=== PATIENT | male | born 1965 | race Caucasian/White ===

== ENCOUNTER 2018-04-19 09:42 | Emergency (ER) | payer BC, MEDICAID ==
[~2018-04-19] VITALS: Ht 188 cm; Wt 81.2 kg
[2018-04-19] MEDS ORDERED: SODIUM CHLORIDE FLUSH 10ML SYR IVF ONE (10:00)
[2018-04-19] MEDS ORDERED: GLUCAGON 1 MG IVPush ONE (10:00)
[2018-04-19 10:35] LABS: BASOPHILS % (AUTO) 1 % (0-1); EOSINOPHILS # (AUTO) 0.05 x10^3/uL (0-0.4); EOSINOPHILS % (AUTO) 1 % (1-7); LYMPHOCYTES # (AUTO) 2.49 x10^3/uL (1-3.4); LYMPHOCYTES % (AUTO) 25 % (22-44); MD NO; MEAN CORPUSCULAR HEMOGLOBIN 31.1 pg (27.5-34.5); MEAN CORPUSCULAR HGB CONC 33.9 g/dL (33.2-36.2); MEAN CORPUSCULAR VOLUME 91.6 fL (81-97); MEAN PLATELET VOLUME 8.1 fL (7.4-10.4); MONOCYTES % (AUTO) 8 % (2-9); NEUTROPHILS % (AUTO) 66 % (42-75); PLATELET COUNT 327 x10^3/uL (130-400); RED BLOOD COUNT 5.64 x10^6/uL (4.38-5.82); RED CELL DISTRIBUTION WIDTH 13.4 % (9.4-14.8)
[2018-04-19] MEDS ORDERED: GLUCAGON 1 MG ONE (10:35)
[2018-04-19] MEDS ORDERED: ONDANSETRON ODT 4 MG ONE (10:36)
[2018-04-19] MEDS ORDERED: HYDROmorphone 2 MG/ML, 1ML ONE (10:36)
[2018-04-19 10:47] LABS: ALANINE AMINOTRANSFERASE 33 U/L (12-78); ALBUMIN 4.7 g/dL (3.4-5.0); ANION GAP 10 mmol/L (5-15); CALCIUM 9.7 mg/dL (8.5-10.1); CHLORIDE 109 mmol/L (98-107); CREATININE 1.08 mg/dL (0.7-1.3)
[2018-04-19 10:49] LABS: ALKALINE PHOSPHATASE 63 U/L (45-117); BILIRUBIN,TOTAL 0.9 mg/dL (0.2-1.0); TOTAL PROTEIN 8.9 g/dL (6.4-8.2)
[2018-04-19] MEDS ORDERED: ONDANSETRON ODT 4 MG PO ONE (11:00)
[2018-04-19] MEDS ORDERED: HYDROmorphone 2 MG/ML, 1ML IVPush PRN (11:00)
[2018-04-19 11:18] VITALS: BP 137/90
[2018-04-19] MEDS ORDERED: PROPOFOL 10 MG/ML, 20ML ONE (11:50)
[2018-04-19] MEDS ORDERED: PROPOFOL 10 MG/ML, 20ML IVPush ONE (12:00)
== END 2018-04-19 13:30 | disposition home or self-care (01) ==
LOC: ED 13:15
DX: T18.128A Food in esophagus causing other injury, initial encounter (principal); I10 Essential (primary) hypertension; X58.XXXA Exposure to other specified factors, initial encounter; Y93.89 Activity, other specified; Y92.89 Other specified places as the place of occurrence of the external cause; Y99.8 Other external cause status
CPT/HCPCS: 36415; 43247; 80053; 85025; 99285; J1170; J1610; J2704; Q0162

== ENCOUNTER 2018-11-30 10:51 | Emergency (ER) | payer BC ==
[~2018-11-30] VITALS: Ht 188 cm; Wt 81.7 kg
--- NOTE | 2018-11-30 11:18 | NUR ---
SECURITY TESTER: PT AMBULATORY TO ROOM FROM LOBBY
[2018-11-30] MEDS ORDERED: GLUCAGON 1 MG ONE (11:38)
--- NOTE | 2018-11-30 11:41 | NUR ---
AWAITING GI FOR CONSULT/SCOPE.
[2018-11-30] MEDS ORDERED: GLUCAGON 1 MG IVPush ONE (12:00)
--- NOTE | 2018-11-30 12:24 | NUR ---
pt resting comfortablt on an e.r. gurney. emesis bag provided for drool collection. vs are stable, and wdl. i will continue to monitor and treat as ordered, as well as prn while awaiting gi to arrive for egd.
[2018-11-30] MEDS ORDERED: ONDANSETRON 2MG/ML, 2ML IVPush ONE (13:30)
[2018-11-30] MEDS ORDERED: MORPHINE SULFATE 4 MG/ML, 1ML IVPush PRN (13:30)
[2018-11-30] MEDS ORDERED: ONDANSETRON 2MG/ML, 2ML ONE (13:45)
[2018-11-30] MEDS ORDERED: MORPHINE SULFATE 4 MG/ML, 1ML ONE (13:46)
[2018-11-30] MEDS ORDERED: PROPOFOL 10 MG/ML, 20ML ONE (15:03)
[2018-11-30] MEDS ORDERED: FENTANYL PF 100 MCG/2ML ONE (15:15)
--- NOTE | 2018-11-30 15:55 | NUR ---
TASK RN: RECIEVED REPROT FROM EGD RN AND PASSED ON TO SATHISH RN. PT IS A/OX4 WITH NADN. MAINTAINS AIRWAY WITHOUT DISTRESS. PT SPEAKIGN IN FULL SENTANCES. SATHISH RN TO ASSUME CARE.
[2018-11-30 16:56] VITALS: BP 107/82
== END 2018-11-30 16:58 | disposition home or self-care (01) ==
LOC: ED 12:54
DX: T18.128A Food in esophagus causing other injury, initial encounter (principal); I10 Essential (primary) hypertension; X58.XXXA Exposure to other specified factors, initial encounter; Y93.89 Activity, other specified; Y92.89 Other specified places as the place of occurrence of the external cause; Y99.8 Other external cause status
CPT/HCPCS: 43247; 96374; 96375; 99285; J1610; J2405

== ENCOUNTER 2019-01-05 12:16 | Emergency (ER) | payer BC ==
[~2019-01-05] VITALS: Ht 188 cm; Wt 80.5 kg
--- NOTE | 2019-01-05 12:40 | NUR ---
SWALLOWED FOOD YESTERDAY IT DID NOT PASS TO THE STOMACH UNABLE TO EAT HX SAME AO4 RESP NORMAL LUNGS CLEAR
[2019-01-05] MEDS ORDERED: GLUCAGON 1 MG IVPush STA (12:47)
[2019-01-05] MEDS ORDERED: SODIUM CHLORIDE FLUSH 10ML SYR IVF ONE (13:00)
[2019-01-05] MEDS ORDERED: GLUCAGON 1 MG ONE (13:02)
--- NOTE | 2019-01-05 13:29 | NUR ---
PT. REMAINS A & O X 4 WITH THE CP MONITOR IN PLACE. PT. IS RESTING WITH THE HOB ELEVATED GREATER THAN 30 DEGREES. PT.'S RESP ARE EUPNEIC. VSS.
--- NOTE | 2019-01-05 14:28 | NUR ---
PT IS READY FOR EGD WAITING FOR GI MD NOW VSS STABLE FAMILY AT BED SIDE NO C/O EXCEPT NOT FEELING WELL IN STOMACH
[2019-01-05] MEDS ORDERED: ATROPINE SYRINGE 0.1 MG/ML, 10ML ONE (14:37)
--- NOTE | 2019-01-05 16:01 | NUR ---
PT. IS RESTING WITHOUT CONCERNS. PT. IS AWAITING HIS PROCEDURE.
--- NOTE | 2019-01-05 16:30 | NUR ---
ENDO TEAM IS HERE TO SCOPE THE PT.
[2019-01-05] MEDS ORDERED: PROPOFOL 10 MG/ML, 20ML ONE (16:32)
--- NOTE | 2019-01-05 18:12 | NUR ---
PT. IS TOLERATING PO FLUIDS. PT. HAS RECOVERED FROM PROCEDURAL SEDATION. PT. REMAINS PINK, WARM AND DRY. PT.'S IV WAS DCD', CATH TIP INTACT. PRESSURE HELD WITH HEMOSTASIS ACHIEVED. PT. WAS GIVEN DISCHARGE INSTRUCTIONS AND A SCRIPT WITH UNDERSTANDING VERBALIZED ALONG WITH WILLINGNESS TO COMPLY. PT. WAS AMBULATORY TO THE DISCHARGE DESK WITH A STEADY GAIT. VSS.
[2019-01-05 18:14] VITALS: BP 138/72
--- NOTE | 2019-01-05 18:16 | NUR ---
LATE ENTRY: PT. WAS GIVEN PROPOFOL BY DR. FERNANDEZ DURING HIS PROCEDURAL SEDATION PROCEDURE, PT. WAS SCOPED.
== END 2019-01-05 18:18 | disposition home or self-care (01) ==
LOC: ED 14:24
DX: T18.128A Food in esophagus causing other injury, initial encounter (principal); I10 Essential (primary) hypertension; Y93.89 Activity, other specified; Y92.89 Other specified places as the place of occurrence of the external cause; Y99.8 Other external cause status
CPT/HCPCS: 43247; 96374; 99152; 99285; J1610

== ENCOUNTER 2019-12-06 11:39 | Inpatient (IN) | payer BC, OTHER ==
[~2019-12-06] VITALS: Ht 188 cm; Wt 83.2 kg
[~2019-12-06 11:39] MED LIST: OMEP20TA62 PO
[2019-12-06] MEDS ORDERED: ONDANSETRON ODT 4 MG PO ONE (12:00)
[2019-12-06] MEDS ORDERED: ONDANSETRON ODT 4 MG ONE (12:01)
[2019-12-06] MEDS ORDERED: PROMETHAZINE 25 MG/ML, 1ML ONE (12:26)
[2019-12-06] MEDS ORDERED: FAMOTIDINE 20 MG/2 ML ONE (12:27)
[2019-12-06] MEDS ORDERED: SODIUM CHLORIDE FLUSH 10ML SYR IVF ONE (12:30)
[2019-12-06] MEDS ORDERED: SODIUM CHLORIDE 0.9% 1,000ML IVBOLUS ONE ×2 (12:30→15:00)
[2019-12-06] MEDS ORDERED: FAMOTIDINE 20 MG/2 ML IV ONE (12:30)
[2019-12-06] MEDS ORDERED: PROMETHAZINE 25 MG/ML, 1ML IM ONE (12:30)
[2019-12-06 12:32] LABS: MEAN CORPUSCULAR HEMOGLOBIN 32.1 pg (27.5-34.5); MEAN CORPUSCULAR HGB CONC 34.1 g/dL (33.2-36.2); MEAN CORPUSCULAR VOLUME 94.1 fL (81-97); MEAN PLATELET VOLUME 7.9 fL (7.4-10.4); PLATELET COUNT 311 x10^3/uL (130-400); RED BLOOD COUNT 5.49 x10^6/uL (4.38-5.82); RED CELL DISTRIBUTION WIDTH 13.7 % (9.4-14.8)
[2019-12-06 12:40] LABS: PROTHROMBIN TIME 10.6 Seconds (9.6-11.5)
[2019-12-06 12:41] LABS: ALANINE AMINOTRANSFERASE 42 U/L (12-78); ALBUMIN 4.5 g/dL (3.4-5.0); ANION GAP 10 mmol/L (5-15); CALCIUM 9.7 mg/dL (8.5-10.1); CHLORIDE 88 mmol/L (98-107); CREATININE 1.43 mg/dL (0.7-1.3)
[2019-12-06 12:44] LABS: ALKALINE PHOSPHATASE 64 U/L (45-117); BILIRUBIN,TOTAL 2.2 mg/dL (0.2-1.0); TOTAL PROTEIN 8.8 g/dL (6.4-8.2)
--- NOTE | 2019-12-06 12:47 | NUR ---
PT HAS VOMITED NUMEROUS TIMES, RED/BROWN IN COLOR. ERP SONIA NOTIFIED. PHENERGAN ORDERED AND ADMINISTERED. PT ON ALL MONITORS, PT A&O, RESPS EVEN AND UNLABORED, SINUS TACH RATE 110'S ON CARDIAC MONTIOR WITH NO ECTOPY. PIV ATTEMPTED X 2 BY THIS RN. LETTERPRESS SETTER AT BEDSIDE FOR ATTEMPT.
[2019-12-06 12:56] LABS: MD YES
--- NOTE | 2019-12-06 12:56 | NUR ---
Flokimo Juarez assisted with IV insert and medicated pt per MAR. See MAR for intervention details. Primary RN aware. Pt P/W/D, RESP Intact, call light within reach. Pt to xray.
[2019-12-06 12:58] LABS: BAND#(MANUAL) 2.75 x10^3/uL; BANDS%(MANUAL) 12 % (0-7); LYMPH#(MANUAL) 0.46 x10^3/uL (1-3.4); LYMPHS% (MANUAL) 2 % (22-44); MONOS#(MANUAL) 1.37 x10^3/uL (0.3-2.7); MONOS% (MANUAL) 6 % (2-9); SEG#(MANUAL) 18.32 x10^3/uL (1.8-6.8); SEGS% (MANUAL) 80 % (42-75)
--- NOTE | 2019-12-06 13:00 | NUR ---
pt to radiology for imaging
[2019-12-06 13:04] LABS: <PLATELET ESTIMATE> ADEQUATE; <RBC MORPHOLOGY> NORMAL
[2019-12-06 13:05] LABS: <PLT MORPHOLOGY> NORMAL PLT MORPH
--- NOTE | 2019-12-06 13:16 | NUR ---
pt back from radiology
[2019-12-06] MEDS ORDERED: ONDANSETRON 2MG/ML, 2ML ONE (13:27)
[2019-12-06] MEDS ORDERED: ONDANSETRON 2MG/ML, 2ML IVPush ONE (13:30)
--- NOTE | 2019-12-06 14:01 | NUR ---
second dose zofran ordered and admin as pt is still vomiting q15 min upon return from CT. pt is now more comfortable and has stopped vomiting. pt is a&o, resps even and unlabored. sinus tach on quality assurance monitor final with no ectopy. all labs/imaging reviewed by WANDA Bay, CT scan ordered.
[2019-12-06] MEDS ORDERED: OMNIPAQUE 350 MG/ML, 100ML BOTTLE ONE (14:33)
[2019-12-06] MEDS ORDERED: MORPHINE SULFATE 4 MG/ML, 1ML ONE (14:50)
--- NOTE | 2019-12-06 14:54 | NUR ---
MD SCOTT NOTIFIED PT MEETING CRITERIA FOR SEPSIS, C/O ABD PAIN RADIATING UP TO CHEST AND THROAT. MORPHINE ORDERED. MD INFORMED PT IS STILL TACHYCARDIC AT RATE 110'S, SECOND LITER NS ORDERED. VOMITING HAS SUBSIDED. REPORT GIVEN TO GRANT PARDO WHO IS ASSUMING CARE.
[2019-12-06] MEDS ORDERED: MORPHINE SULFATE 4 MG/ML, 1ML IVPush PRN (15:00)
--- NOTE | 2019-12-06 15:09 | NUR ---
REPORT RECEIVED FROM KENDRICK BURNS. PT IS RESTING ON RNEW DERRY W/ FAMILY AT BEDSIDE.
--- NOTE | 2019-12-06 15:48 | NUR ---
IN ROOM TO UPDATE PT ON POC FOR ADMIT.
--- NOTE | 2019-12-06 16:04 | NUR ---
PT TO CT.
--- NOTE | 2019-12-06 16:18 | NUR ---
PT BACK FROM CT, LAB IN ROOM.
[2019-12-06] MEDS ORDERED: OMNIPAQUE 350 MG/ML, 75ML BOTTLE ONE (16:21)
--- NOTE | 2019-12-06 16:21 | NUR ---
MED RUPAL FROM PHARMACY.
[2019-12-06] MEDS ORDERED: MEROPENEM 1 GM in SODIUM CHLORIDE 0.9% 100 ML IV ONE (16:30)
[2019-12-06] MEDS: SODIUM CHLORIDE 0.9% 1,000 ML IV SCH ×2 (17:36→20:39)
--- NOTE | 2019-12-06 17:45 | NUR ---
ADMITTING PROVIDER IN ROOM.
[2019-12-06 17:54] LABS: MICROSCOPIC AUTO
[2019-12-06 17:55] LABS: CULTURE INDICATED? NO
--- NOTE | 2019-12-06 17:59 | NUR ---
SPOKE W/ DR. TEMPLETON WOULD LIKE A 500CC BOLUS BEFORE STARTING MAINTEANCE FLUIDS, OK TO HOLD MEREM ABX DUE TO DUPLICATE ORDER.
[2019-12-06] MEDS ORDERED: PANTOPRAZOLE 80 MG in SODIUM CHLORIDE 0.9% 50 ML IV ONE (18:00)
[2019-12-06] MEDS ORDERED: MEROPENEM 1 GM in SODIUM CHLORIDE 0.9% 100 ML IV SCH (18:00)
[2019-12-06] MEDS ORDERED: PHARMACY MAY ADJ FOR RENAL FX MC PRN (18:00)
[2019-12-06] MEDS ORDERED: ONDANSETRON 2MG/ML, 2ML IVPush PRN (18:00)
--- NOTE | 2019-12-06 18:02 | NUR ---
PT REPORTS NO HOME MEDS.
--- NOTE | 2019-12-06 18:11 | NUR ---
MED RUPAL FROM PHARMACY.
--- NOTE | 2019-12-06 18:13 | NUR ---
PT RESTING ON GURNEY W/ CALL LIGHT IN REACH AND FAMILY AT BEDSIDE.
--- NOTE | 2019-12-06 18:31 | NUR ---
REPORT GIVEN TO WALLY BURNS. PT IS READY FOR TRANSPORT.
--- NOTE | 2019-12-06 18:41 | NUR ---
CINTHIA SENT UP W/ PT.
[2019-12-06] MEDS: PANTOPRAZOLE 80 MG in SODIUM CHLORIDE 0.9% 100 ML IV SCH (20:38)
[2019-12-06] MEDS: ONDANSETRON 2MG/ML, 2ML IVPush PRN (20:57)
[2019-12-06] MEDS: morphine SULFATE 10 MG/ML, 1ML IVPush PRN (20:58)
[2019-12-06 22:10] VITALS: BP 138/90
[2019-12-07 00:18] VITALS: BP 128/72
[2019-12-07] MEDS: morphine SULFATE 10 MG/ML, 1ML IVPush PRN ×7 (00:21→23:00)
[2019-12-07] MEDS: MEROPENEM 1 GM in SODIUM CHLORIDE 0.9% 100 ML IV SCH ×3 (00:21→17:10)
[2019-12-07] MEDS: SODIUM CHLORIDE 0.9% 1,000 ML IV SCH ×4 (00:57→20:12)
[2019-12-07 03:00] LABS: MEAN CORPUSCULAR HEMOGLOBIN 31.8 pg (27.5-34.5); MEAN CORPUSCULAR HGB CONC 33.4 g/dL (33.2-36.2); MEAN CORPUSCULAR VOLUME 95.1 fL (81-97); MEAN PLATELET VOLUME 7.8 fL (7.4-10.4); PLATELET COUNT 253 x10^3/uL (130-400); RED CELL DISTRIBUTION WIDTH 13.5 % (9.4-14.8)
[2019-12-07 03:13] LABS: ALBUMIN 3.1 g/dL (3.4-5.0); ANION GAP 7 mmol/L (5-15); CALCIUM 8.3 mg/dL (8.5-10.1); CHLORIDE 100 mmol/L (98-107)
[2019-12-07 03:17] LABS: ALANINE AMINOTRANSFERASE 30 U/L (12-78); ALKALINE PHOSPHATASE 46 U/L (45-117); BILIRUBIN,TOTAL 1.4 mg/dL (0.2-1.0); CREATININE 0.71 mg/dL (0.7-1.3); TOTAL PROTEIN 6.2 g/dL (6.4-8.2)
[2019-12-07 03:19] LABS: MD YES
[2019-12-07 03:21] LABS: BAND#(MANUAL) 3.38 x10^3/uL; BANDS%(MANUAL) 15 % (0-7); LYMPH#(MANUAL) 1.58 x10^3/uL (1-3.4); LYMPHS% (MANUAL) 7 % (22-44); MONOS#(MANUAL) 2.03 x10^3/uL (0.3-2.7); MONOS% (MANUAL) 9 % (2-9); SEG#(MANUAL) 15.53 x10^3/uL (1.8-6.8); SEGS% (MANUAL) 69 % (42-75)
[2019-12-07 03:22] LABS: <PLATELET ESTIMATE> ADEQUATE; <PLT MORPHOLOGY> NORMAL PLT MORPH; <RBC MORPHOLOGY> NORMAL
[2019-12-07] MEDS: ONDANSETRON 2MG/ML, 2ML IVPush PRN ×4 (03:55→22:59)
[2019-12-07] MEDS: PANTOPRAZOLE 80 MG in SODIUM CHLORIDE 0.9% 100 ML IV SCH (05:31)
[2019-12-07 06:24] VITALS: BP 142/88
[2019-12-07 08:58] VITALS: BP 145/87
[2019-12-07] MEDS ORDERED: PANTOPRAZOLE 40 MG IV IVPush SCH (09:00)
[2019-12-07] MEDS ORDERED: CHLORHEXIDINE 15 ML UDC MM ONE (12:00)
[2019-12-07] MEDS ORDERED: FENTANYL PF 100 MCG/2ML IV PRN (12:30)
[2019-12-07] MEDS ORDERED: FENTANYL PF 100 MCG/2ML ONE (12:34)
[2019-12-07] MEDS ORDERED: ROCURONIUM 10MG/ML,5ML ONE (13:01)
[2019-12-07] MEDS ORDERED: GLYCOPYRROLATE 0.2MG/1ML, 5ML ONE (13:01)
[2019-12-07] MEDS ORDERED: ONDANSETRON 2MG/ML, 2ML ONE (13:01)
[2019-12-07] MEDS ORDERED: PROPOFOL 10 MG/ML, 20ML ONE (13:01)
[2019-12-07] MEDS ORDERED: NEOSTIGMINE 1 MG/ML, 10ML ONE (13:01)
[2019-12-07] MEDS ORDERED: SUCCINYLCHOLINE 20 MG/ML, 10ML ONE (13:01)
[2019-12-07] MEDS ORDERED: DEXAMETHASONE 4 MG/ML, 1ML ONE (13:01)
[2019-12-07] MEDS ORDERED: CEFAZOLIN 1,000 MG ONE (13:01)
[2019-12-07 14:01] VITALS: BP 135/88
[2019-12-07] MEDS ORDERED: FLUCONAZOLE 400 MG/200 ML 200 ML IV SCH (15:30)
[2019-12-07] MEDS: SUCRALFATE 1 GM/10 ML UDC PO SCH ×2 (15:37→20:11)
[2019-12-07] MEDS: OMEPRAZOLE 20 MG CAPSULE.DR PO SCH (15:37)
[2019-12-07 18:58] VITALS: BP 145/96
[2019-12-08] MEDS: MEROPENEM 1 GM in SODIUM CHLORIDE 0.9% 100 ML IV SCH ×2 (00:42→08:22)
[2019-12-08 02:10] VITALS: BP 144/85
[2019-12-08] MEDS: SODIUM CHLORIDE 0.9% 1,000 ML IV SCH (02:52)
[2019-12-08] MEDS: morphine SULFATE 10 MG/ML, 1ML IVPush PRN ×5 (02:56→22:55)
[2019-12-08] MEDS: OMEPRAZOLE 20 MG CAPSULE.DR PO SCH ×2 (06:22→16:10)
[2019-12-08] MEDS: SUCRALFATE 1 GM/10 ML UDC PO SCH ×4 (06:22→20:56)
[2019-12-08 06:40] LABS: BASOPHILS # (AUTO) 0.01 x10^3/uL (0-0.1); BASOPHILS % (AUTO) 0 % (0-1); EOSINOPHILS # (AUTO) 0.03 x10^3/uL (0-0.4); EOSINOPHILS % (AUTO) 0 % (1-7); LYMPHOCYTES # (AUTO) 2.12 x10^3/uL (1-3.4); LYMPHOCYTES % (AUTO) 19 % (22-44); MD NO; MEAN CORPUSCULAR HEMOGLOBIN 32.1 pg (27.5-34.5); MEAN CORPUSCULAR HGB CONC 33.6 g/dL (33.2-36.2); MEAN CORPUSCULAR VOLUME 95.6 fL (81-97); MEAN PLATELET VOLUME 8.1 fL (7.4-10.4); MONOCYTES # (AUTO) 0.76 x10^3/uL (0.2-0.8); MONOCYTES % (AUTO) 7 % (2-9); NEUTROPHILS # (AUTO) 8.13 x10^3/uL (1.8-6.8); NEUTROPHILS % (AUTO) 74 % (42-75); PLATELET COUNT 220 x10^3/uL (130-400); RED BLOOD COUNT 4.31 x10^6/uL (4.38-5.82); RED CELL DISTRIBUTION WIDTH 13.8 % (9.4-14.8)
[2019-12-08 06:45] LABS: ALBUMIN 3.1 g/dL (3.4-5.0); ANION GAP 5 mmol/L (5-15); CALCIUM 8.3 mg/dL (8.5-10.1); CHLORIDE 99 mmol/L (98-107)
[2019-12-08 06:50] LABS: ALANINE AMINOTRANSFERASE 42 U/L (12-78); ALKALINE PHOSPHATASE 44 U/L (45-117); TOTAL PROTEIN 6.4 g/dL (6.4-8.2)
[2019-12-08 07:15] VITALS: BP 172/92
[2019-12-08] MEDS: OXYcodone/APAP 5/325MG TABLET PO PRN ×2 (10:04→20:56)
[2019-12-08] MEDS: DOCUSATE 100 MG CAPSULE PO SCH ×2 (11:29→20:56)
[2019-12-08 12:43] VITALS: BP 170/93
[2019-12-08] MEDS ORDERED: FLUCONAZOLE 200 MG TABLET ONE (14:56)
[2019-12-08] MEDS ORDERED: FLUCONAZOLE 100 MG TABLET PO SCH (15:00)
[2019-12-08] MEDS: POTASSIUM CHLORIDE 20 MEQ TAB.ER.PRT PO SCH (16:01)
[2019-12-08 16:27] LABS: TROPONIN I 0.019 ng/mL (0.000-0.045)
[2019-12-08] MEDS ORDERED: SODIUM CHLORIDE 0.9% 1,000 ML IV SCH (17:50)
[2019-12-08 19:15] VITALS: BP 155/98
[2019-12-08 20:44] LABS: TROPONIN I < 0.015 ng/mL (0.000-0.045)
[2019-12-09] VITALS (8 sets, daily range): BP systolic 148–168; BP diastolic 93–120
[2019-12-09] MEDS: SUCRALFATE 1 GM/10 ML UDC PO SCH ×2 (06:05→10:02)
[2019-12-09] MEDS: morphine SULFATE 10 MG/ML, 1ML IVPush PRN (06:05)
[2019-12-09] MEDS: OMEPRAZOLE 20 MG CAPSULE.DR PO SCH (06:07)
[2019-12-09 07:00] LABS: BASOPHILS # (AUTO) 0.01 x10^3/uL (0-0.1); BASOPHILS % (AUTO) 0 % (0-1); EOSINOPHILS # (AUTO) 0.14 x10^3/uL (0-0.4); EOSINOPHILS % (AUTO) 1 % (1-7); LYMPHOCYTES # (AUTO) 2.16 x10^3/uL (1-3.4); LYMPHOCYTES % (AUTO) 21 % (22-44); MD NO; MEAN CORPUSCULAR HEMOGLOBIN 32.3 pg (27.5-34.5); MEAN CORPUSCULAR HGB CONC 33.4 g/dL (33.2-36.2); MEAN CORPUSCULAR VOLUME 96.7 fL (81-97); MEAN PLATELET VOLUME 7.9 fL (7.4-10.4); MONOCYTES # (AUTO) 0.63 x10^3/uL (0.2-0.8); MONOCYTES % (AUTO) 6 % (2-9); NEUTROPHILS # (AUTO) 7.37 x10^3/uL (1.8-6.8); NEUTROPHILS % (AUTO) 71 % (42-75); PLATELET COUNT 245 x10^3/uL (130-400); RED BLOOD COUNT 4.85 x10^6/uL (4.38-5.82); RED CELL DISTRIBUTION WIDTH 13.1 % (9.4-14.8)
[2019-12-09 07:11] LABS: ALBUMIN 3.4 g/dL (3.4-5.0); ANION GAP 7 mmol/L (5-15); CALCIUM 8.9 mg/dL (8.5-10.1); CHLORIDE 96 mmol/L (98-107)
[2019-12-09 07:19] LABS: ALANINE AMINOTRANSFERASE 43 U/L (12-78); ALKALINE PHOSPHATASE 52 U/L (45-117); CREATININE 0.63 mg/dL (0.7-1.3); TOTAL PROTEIN 7.2 g/dL (6.4-8.2); TROPONIN I < 0.015 ng/mL (0.000-0.045)
[2019-12-09] MEDS ORDERED: MAGNESIUM CITRATE 300ML ORAL SOL PO ONE (09:30)
[2019-12-09] MEDS: POTASSIUM CHLORIDE 20 MEQ TAB.ER.PRT PO SCH (10:02)
[2019-12-09] MEDS: DOCUSATE 100 MG CAPSULE PO SCH (10:02)
[2019-12-09] MEDS ORDERED: OMEP-110 PO (12:02)
[2019-12-09] MEDS ORDERED: DOCU100C33 PO (12:02)
[2019-12-09] MEDS ORDERED: POTA20TA6 PO (12:02)
[2019-12-09] MEDS ORDERED: SUCR1ORA5 PO (12:02)
[2019-12-09] MEDS ORDERED: ACET325T21 PO (12:02)
[2019-12-09] MEDS ORDERED: AMLO10TA8 PO (12:03)
[2019-12-09] MEDS ORDERED: MAGNESIUM HYDROXIDE 8%, 30ML UDC PO SCH (21:00)
== END 2019-12-09 15:08 | disposition home or self-care (01) | DRG 871 ==
LOC: ED 13:18 → EDIP 17:50 → 4EST 18:46
PROVIDERS: ADMIT Internal Medicine; ATTEND Internal Medicine
PROC: 0DB58ZX Excision of Esophagus, Via Natural or Artificial Opening Endoscopic, Diagnostic (ICD-10-PCS; principal; 2019-12-06)
DX: A41.9 Sepsis, unspecified organism (principal); N17.0 Acute kidney failure with tubular necrosis; K22.11 Ulcer of esophagus with bleeding; E87.1 Hypo-osmolality and hyponatremia; I10 Essential (primary) hypertension; F17.200 Nicotine dependence, unspecified, uncomplicated; K31.89 Other diseases of stomach and duodenum; E86.0 Dehydration; K21.0 Gastro-esophageal reflux disease with esophagitis; K80.20 Calculus of gallbladder without cholecystitis without obstruction; K40.90 Unilateral inguinal hernia, without obstruction or gangrene, not specified as recurrent; F12.90 Cannabis use, unspecified, uncomplicated; Z85.01 Personal history of malignant neoplasm of esophagus
CPT/HCPCS: 36415; 74021; 84145; 96361; 96365; 96372; 96375; 99285; J3490; 71260; 74177; 80053; 81001; 83036; 83605; 83690; 83735; 84484; 85014; 85018; 85025; 85610; 85730; 86850; 86900; 87040; 88305; 88312; 93005; G0378; J0690; J1100; J1450; J2185; J2405; J2550; J2704; J2710; J3010; Q0162; Q9967; C9113; J0330; J2270; J7030

== ENCOUNTER 2021-01-03 06:41 | Day surgery (SDC) | payer MEDICAID, OTHER ==
[~2021-01-03] VITALS: Ht 188 cm; Wt 59.4 kg
[~2021-01-03 06:41] MED LIST changes: +ACET-2274 PO; +AMLO-211 PO; +DOCU100C33 PO; +OMEP-110 PO; +POTA20TA6 PO; +SUCR1ORA5 PO
[2021-01-03] MEDS ORDERED: LACTATED RINGERS 1,000 ML IV SCH (07:00)
[2021-01-03] MEDS ORDERED: CHLORHEXIDINE 15 ML UDC PO ONE (07:00)
[2021-01-03] MEDS ORDERED: LIDOCAINE-MPF 1%, 2ML INFIL ONE (07:00)
[2021-01-03] MEDS ORDERED: MIRT30TA3 PO (07:08)
[2021-01-03] MEDS ORDERED: TIZA-106 PO (07:08)
[2021-01-03] MEDS ORDERED: OMEP40CA42 PO (07:13)
[2021-01-03] MEDS ORDERED: SUCR1TAB33 PO (07:13)
[2021-01-03 07:14] VITALS: BP 107/84
[2021-01-03] MEDS ORDERED: ONDANSETRON 2MG/ML, 2ML IVPush PRN (07:30)
[2021-01-03] MEDS ORDERED: FENTANYL PF 100 MCG/2ML IV PRN (07:30)
[2021-01-03] MEDS ORDERED: LABETALOL 5MG/ML, 20ML IV PRN (07:30)
[2021-01-03] MEDS ORDERED: hydrALAzine 20 MG/ML, 1ML IV PRN (07:30)
[2021-01-03] MEDS ORDERED: METOCLOPRAMIDE 5 MG/ML, 2ML IVPush PRN (07:30)
[2021-01-03] MEDS ORDERED: EPHEDRINE 50 MG/ML, 1ML IVPush PRN (07:30)
[2021-01-03] MEDS ORDERED: PROMETHAZINE 25 MG/ML, 1ML IVPush PRN (07:30)
[2021-01-03] MEDS ORDERED: HALOPERIDOL 5 MG/ML IV PRN (07:30)
[2021-01-03] MEDS ORDERED: ACETAMINOPHEN 325 MG TABLET PO PRN (07:30)
[2021-01-03] MEDS ORDERED: DIAZEPAM 5 MG/ML, 2ML IVPush PRN (07:30)
[2021-01-03] MEDS ORDERED: METOPROLOL 1 MG/ML, 5ML IV PRN (07:30)
[2021-01-03] MEDS ORDERED: FENTANYL PF 100 MCG/2ML ONE (07:31)
[2021-01-03] MEDS ORDERED: ESCI10TA97 PO (07:52)
[2021-01-03] MEDS ORDERED: TAMS-11 PO (07:52)
[2021-01-03] MEDS ORDERED: GABA-826 PO (07:52)
[2021-01-03] MEDS ORDERED: ONDA4TAB7 PO (07:52)
[2021-01-03] MEDS ORDERED: HYDR50TA99 PO (07:52)
[2021-01-03] MEDS ORDERED: ONDANSETRON 2MG/ML, 2ML ONE (08:35)
[2021-01-03] MEDS ORDERED: SUCCINYLCHOLINE 20 MG/ML, 10ML ONE (08:35)
[2021-01-03] MEDS ORDERED: DEXAMETHASONE 4 MG/ML, 1ML ONE (08:35)
[2021-01-03] MEDS ORDERED: PHENYLEPHRINE 10 MG/ML ONE (08:35)
[2021-01-03] MEDS ORDERED: PROPOFOL 10 MG/ML, 20ML ONE (08:35)
[2021-01-03] MEDS ORDERED: ROCURONIUM 10 MG/ML,10ML ONE (08:35)
== END 2021-01-03 10:30 | disposition home or self-care (01) ==
LOC: OUT 06:41
PROVIDERS: ATTEND Internal Medicine Gastroenterology
DX: K22.2 Esophageal obstruction (principal); T18.128A Food in esophagus causing other injury, initial encounter; K22.10 Ulcer of esophagus without bleeding; K21.9 Gastro-esophageal reflux disease without esophagitis; I10 Essential (primary) hypertension; E46 Unspecified protein-calorie malnutrition; N40.0 Benign prostatic hyperplasia without lower urinary tract symptoms; F17.200 Nicotine dependence, unspecified, uncomplicated; Z20.822 Contact with and (suspected) exposure to COVID-19; Z68.1 Body mass index [BMI] 19.9 or less, adult; Z79.899 Other long term (current) drug therapy; Z98.890 Other specified postprocedural states; X58.XXXA Exposure to other specified factors, initial encounter; Y93.89 Activity, other specified; Y92.89 Other specified places as the place of occurrence of the external cause; Y99.8 Other external cause status
CPT/HCPCS: 43239; 43247; 43249; 87635; 88305; 88342; C1725; J0330; J1100; J2370; J2405; J2704; J3010; J7120

== ENCOUNTER 2021-01-29 09:21 | Inpatient (IN) | payer MEDICAID ==
[~2021-01-29] VITALS: Ht 188 cm; Wt 60.1 kg
[~2021-01-29 09:21] MED LIST changes: +ESCI10TA97 PO; +GABA-826 PO; +HYDR50TA99 PO; +MIRT30TA3 PO; +OMEP40CA8 PO; +ONDA4TAB7 PO; +SUCR1TAB33 PO; +TAMS-11 PO; +TIZA-106 PO
[2021-01-29 10:29] LABS: BASOPHILS % (AUTO) 1 % (0-1); EOSINOPHILS % (AUTO) 0 % (1-7); LYMPHOCYTES % (AUTO) 21 % (22-44); MEAN CORPUSCULAR HEMOGLOBIN 31.6 pg (27.5-34.5); MEAN CORPUSCULAR HGB CONC 35.3 g/dL (33.2-36.2); MEAN PLATELET VOLUME 7.6 fL (7.4-10.4); MONOCYTES % (AUTO) 8 % (2-9); NEUTROPHILS % (AUTO) 71 % (42-75); PLATELET COUNT 453 x10^3/uL (130-400); RED BLOOD COUNT 5.33 x10^6/uL (4.38-5.82)
[2021-01-29] MEDS ORDERED: SODIUM CHLORIDE FLUSH 10ML SYR IVF ONE (10:30)
[2021-01-29 10:40] LABS: ALBUMIN 4.4 g/dL (3.4-5.0); ANION GAP 12 mmol/L (5-15); CALCIUM 11.4 mg/dL (8.5-10.1); CHLORIDE 94 mmol/L (98-107)
[2021-01-29 10:43] LABS: ALANINE AMINOTRANSFERASE 31 U/L (12-78); ALKALINE PHOSPHATASE 76 U/L (45-117); BILIRUBIN,TOTAL 0.7 mg/dL (0.2-1.0); CREATININE 2.27 mg/dL (0.7-1.3); TOTAL PROTEIN 9.9 g/dL (6.4-8.2)
[2021-01-29] MEDS ORDERED: SODIUM CHLORIDE 0.9% 1,000 ML IV SCH (11:00)
[2021-01-29] MEDS ORDERED: LORazepam 2 MG/ML, 1ML IVPush ONE (11:00)
[2021-01-29] MEDS ORDERED: ONDANSETRON 2MG/ML, 2ML IVPush ONE (11:00)
[2021-01-29] MEDS ORDERED: LORazepam 2 MG/ML, 1ML ONE (11:09)
[2021-01-29] MEDS ORDERED: ONDANSETRON 2MG/ML, 2ML ONE ×2 (11:09→20:00)
[2021-01-29 11:32] LABS: TROPONIN I < 0.015 ng/mL (0.000-0.045)
--- NOTE | 2021-01-29 11:55 | NUR ---
PT BIB FRIEND VIA POV. PER PT HE IS HERE FOR COMPLAINT OF INABILITY TO KEEP FOOD OR DRINK DOWN X2DAYS. PT STATES THIS HAS BEEN GOING ON FOR APPROX 2 MONTHS. PT ALSO REPORTS HE HAD A ESOPHAGEAL DILATION DONE 3 WEEKS AGO. PT DENIES ANY ABD OR CHEST PAIN AT THIS TIME. STATES HIS DOCTOR SENT HIM IN FOR POSSIBLE PEG TUBE PLACEMENT. PT RESTING IN [facility] AT THIS TIME, MONITORING IN PLACE, PIV PLACED, WCTM. PT STATES NO NEEDS AT THIS TIME.
[2021-01-29] MEDS ORDERED: hydrOXYzine 25 MG/ML IM PRN (12:00)
--- NOTE | 2021-01-29 12:09 | NUR ---
PT MEDICATED PER EMAR. PT EDUCATED ON NPO STATUS D/T VOMITTING. PT VERBALIZES UNDERSTANDING. PT STATES NO NEEDS AT THIS TIME.
[2021-01-29] MEDS ORDERED: SODIUM CHLORIDE 0.9% 1,000ML IVBOLUS ONE (12:30)
[2021-01-29] MEDS ORDERED: morphine SULFATE 10 MG/ML, 1ML IVPush PRN ×2 (12:30→20:30)
[2021-01-29] MEDS ORDERED: LABETALOL 5MG/ML, 20ML IVPush PRN ×2 (14:00→20:30)
[2021-01-29] MEDS ORDERED: METOCLOPRAMIDE 5 MG/ML, 2ML IVPush PRN ×2 (14:00→20:30)
[2021-01-29] MEDS ORDERED: PROMETHAZINE 25 MG/ML, 1ML IM PRN ×2 (14:00→20:30)
[2021-01-29] MEDS ORDERED: ONDANSETRON 2MG/ML, 2ML IVPush PRN (14:00)
[2021-01-29] MEDS ORDERED: LORazepam 2 MG/ML, 1ML IVPush PRN ×2 (14:00→20:30)
[2021-01-29] MEDS: SODIUM CHLORIDE 0.9% 1,000 ML IV SCH ×2 (14:21→20:40)
[2021-01-29] MEDS: PANTOPRAZOLE 40 MG IV IVPush SCH ×2 (14:21→16:47)
[2021-01-29] MEDS ORDERED: PANTOPRAZOLE GRAN. PKT 40 MG ONE (16:37)
[2021-01-29] MEDS ORDERED: morphine SULFATE 10 MG/ML, 1ML ONE ×2 (16:38→19:58)
[2021-01-29] MEDS ORDERED: PANTOPRAZOLE 40 MG IV ONE (16:41)
[2021-01-29 19:06] VITALS: BP 134/90
[2021-01-29] MEDS: ONDANSETRON 2MG/ML, 2ML IVPush PRN (20:05)
[2021-01-29] MEDS ORDERED: NICOTINE 21 MG/24 HR PATCH.TD24 ONE (20:32)
[2021-01-29] MEDS: NICOTINE 21 MG/24 HR PATCH.TD24 TD SCH (20:40)
[2021-01-30 01:19] VITALS: BP 146/76
[2021-01-30] MEDS: SODIUM CHLORIDE 0.9% 1,000 ML IV SCH (03:31)
[2021-01-30 07:08] VITALS: BP 139/80
[2021-01-30] MEDS ORDERED: PROMETHAZINE 25 MG/ML, 1ML IVPush PRN (08:00)
[2021-01-30] MEDS ORDERED: EPHEDRINE 50 MG/ML, 1ML IVPush PRN (08:00)
[2021-01-30] MEDS ORDERED: LABETALOL 5MG/ML, 20ML IV PRN (08:00)
[2021-01-30] MEDS ORDERED: ACETAMINOPHEN 325 MG TABLET PO PRN (08:00)
[2021-01-30] MEDS: HEPARIN 5,000 UNITS/ML, 1ML SQ SCH ×2 (08:00→21:44)
[2021-01-30] MEDS ORDERED: ONDANSETRON 2MG/ML, 2ML IVPush PRN (08:00)
[2021-01-30] MEDS ORDERED: hydrALAzine 20 MG/ML, 1ML IV PRN (08:00)
[2021-01-30 08:25] LABS: MEAN CORPUSCULAR HEMOGLOBIN 30.6 pg (27.5-34.5); MEAN CORPUSCULAR HGB CONC 33.9 g/dL (33.2-36.2); MEAN PLATELET VOLUME 7.3 fL (7.4-10.4); PLATELET COUNT 346 x10^3/uL (130-400); RED BLOOD COUNT 4.24 x10^6/uL (4.38-5.82); RED CELL DISTRIBUTION WIDTH 13.3 % (9.4-14.8)
[2021-01-30 08:33] LABS: ANION GAP 8 mmol/L (5-15); CALCIUM 8.7 mg/dL (8.5-10.1); CHLORIDE 107 mmol/L (98-107); CREATININE 1.05 mg/dL (0.7-1.3)
[2021-01-30] MEDS: PANTOPRAZOLE 40 MG IV IVPush SCH ×2 (08:46→15:39)
[2021-01-30] MEDS ORDERED: NICOTINE 21 MG/24 HR PATCH.TD24 TD SCH (09:00)
[2021-01-30] MEDS: LACTOBACILLUS CHEW TABLET PO SCH ×3 (09:00→21:42)
[2021-01-30 09:11] LABS: <PLATELET ESTIMATE> ADEQUATE; <PLT MORPHOLOGY> NORMAL PLT MORPH; <RBC MORPHOLOGY> NORMAL; BAND#(MANUAL) 0.63 x10^3/uL; BANDS%(MANUAL) 3 % (0-7); EOS#(MANUAL) 0.21 x10^3/uL (0.0-0.4); EOS% (MANUAL) 1 % (1-7); LYMPH#(MANUAL) 0.84 x10^3/uL (1-3.4); LYMPHS% (MANUAL) 4 % (22-44); MONOS#(MANUAL) 1.25 x10^3/uL (0.3-2.7); MONOS% (MANUAL) 6 % (2-9); SEG#(MANUAL) 17.97 x10^3/uL (1.8-6.8); SEGS% (MANUAL) 86 % (42-75)
[2021-01-30] MEDS ORDERED: POTASSIUM CHLORIDE 40 MEQ in SODIUM CHLORIDE 0.9% 500 ML IV ONE (10:00)
[2021-01-30] MEDS ORDERED: PROPOFOL 50 ML ONE (10:53)
[2021-01-30] MEDS ORDERED: FENTANYL PF 100 MCG/2ML ONE (11:38)
[2021-01-30] MEDS ORDERED: OXYcodone 5 MG/5 ML ORAL.SOL UDC ONE (11:38)
[2021-01-30] MEDS: FENTANYL PF 100 MCG/2ML IV PRN ×3 (11:46→11:57)
[2021-01-30] MEDS ORDERED: HYDROmorphone 1 MG/ML, 1ML INJ IVPush PRN (12:00)
[2021-01-30] MEDS ORDERED: OXYcodone 5 MG/5 ML ORAL.SOL UDC PO PRN (12:00)
[2021-01-30] MEDS ORDERED: HYDROmorphone 1 MG/ML, 1ML INJ ONE (12:02)
[2021-01-30 12:22] VITALS: BP 154/93
[2021-01-30] MEDS ORDERED: SODIUM CHLORIDE 0.9% 1,000 ML IV SCH (12:30)
[2021-01-30] MEDS: SUCRALFATE 1 GM/10 ML UDC PO SCH ×3 (13:08→21:43)
[2021-01-30] MEDS: NS + 40MEQ KCL 1,000 ML IV SCH (15:03)
[2021-01-30 18:58] VITALS: BP 136/91
[2021-01-30] MEDS: SIMETHICONE 125 MG CHEW TAB PO PRN (21:03)
[2021-01-30] MEDS: NICOTINE 21 MG/24 HR PATCH.TD24 TD SCH (21:42)
[2021-01-30] MEDS: MIRTAZAPINE 30 MG TABLET PO SCH (23:17)
[2021-01-30] MEDS: ACETAMINOPHEN 650 MG/20.3 ML UDC PO PRN (23:17)
[2021-01-31 00:29] VITALS: BP 122/79
[2021-01-31 06:14] LABS: BASOPHILS % (AUTO) 1 % (0-1); EOSINOPHILS % (AUTO) 1 % (1-7); LYMPHOCYTES % (AUTO) 29 % (22-44); MEAN CORPUSCULAR HEMOGLOBIN 30.9 pg (27.5-34.5); MEAN CORPUSCULAR HGB CONC 34.3 g/dL (33.2-36.2); MEAN PLATELET VOLUME 7.3 fL (7.4-10.4); MONOCYTES % (AUTO) 4 % (2-9); NEUTROPHILS % (AUTO) 66 % (42-75); PLATELET COUNT 253 x10^3/uL (130-400); RED BLOOD COUNT 3.19 x10^6/uL (4.38-5.82); RED CELL DISTRIBUTION WIDTH 13.5 % (9.4-14.8)
[2021-01-31 06:25] LABS: ALANINE AMINOTRANSFERASE 16 U/L (12-78); ALBUMIN 2.5 g/dL (3.4-5.0); ANION GAP 5 mmol/L (5-15); CALCIUM 8.3 mg/dL (8.5-10.1); CHLORIDE 107 mmol/L (98-107); CREATININE 0.75 mg/dL (0.7-1.3)
[2021-01-31 06:27] LABS: ALKALINE PHOSPHATASE 45 U/L (45-117); BILIRUBIN,TOTAL 0.6 mg/dL (0.2-1.0); TOTAL PROTEIN 5.9 g/dL (6.4-8.2)
[2021-01-31] MEDS: SUCRALFATE 1 GM/10 ML UDC PO SCH ×4 (06:32→21:36)
[2021-01-31] MEDS: PANTOPRAZOLE 40 MG IV IVPush SCH (06:32)
[2021-01-31 07:53] VITALS: BP 135/81
[2021-01-31] MEDS: ACETAMINOPHEN 650 MG/20.3 ML UDC PO PRN ×3 (08:27→21:36)
[2021-01-31] MEDS: SIMETHICONE 125 MG CHEW TAB PO PRN ×2 (08:27→16:53)
[2021-01-31] MEDS: LACTOBACILLUS CHEW TABLET PO SCH ×3 (08:27→21:36)
[2021-01-31] MEDS: ESCITALOPRAM 10MG TABLET PO SCH (08:27)
[2021-01-31] MEDS: HEPARIN 5,000 UNITS/ML, 1ML SQ SCH ×2 (08:28→21:36)
[2021-01-31] MEDS: NS + 40MEQ KCL 1,000 ML IV SCH (10:21)
[2021-01-31] MEDS ORDERED: IBUPROFEN 200 MG TABLET PO PRN (11:00)
[2021-01-31 12:28] VITALS: BP 106/68
[2021-01-31] MEDS: PANTOPRAZOLE 40MG TABLET PO SCH (15:30)
[2021-01-31 19:01] VITALS: BP 116/78
[2021-01-31] MEDS: ONDANSETRON 2MG/ML, 2ML IVPush PRN (21:35)
[2021-01-31] MEDS: MIRTAZAPINE 30 MG TABLET PO SCH (21:36)
[2021-01-31] MEDS: NICOTINE 21 MG/24 HR PATCH.TD24 TD SCH (21:46)
[2021-02-01 02:18] VITALS: BP 109/71
[2021-02-01] MEDS: NS + 40MEQ KCL 1,000 ML IV SCH (03:24)
[2021-02-01 04:36] LABS: BASOPHILS % (AUTO) 1 % (0-1); EOSINOPHILS % (AUTO) 1 % (1-7); LYMPHOCYTES % (AUTO) 17 % (22-44); MEAN CORPUSCULAR HEMOGLOBIN 31.2 pg (27.5-34.5); MEAN CORPUSCULAR HGB CONC 34.5 g/dL (33.2-36.2); MEAN PLATELET VOLUME 7.6 fL (7.4-10.4); MONOCYTES % (AUTO) 6 % (2-9); NEUTROPHILS % (AUTO) 77 % (42-75); PLATELET COUNT 232 x10^3/uL (130-400); RED BLOOD COUNT 2.94 x10^6/uL (4.38-5.82); RED CELL DISTRIBUTION WIDTH 13.5 % (9.4-14.8)
[2021-02-01 05:11] LABS: % IRON SATURATION 6 % (20-55); IRON LEVEL 13 mcg/dL (65-175); TOTAL IRON BINDING CAPACITY 220 mcg/dL (250-450)
[2021-02-01] MEDS: SUCRALFATE 1 GM/10 ML UDC PO SCH ×4 (06:18→22:37)
[2021-02-01] MEDS: PANTOPRAZOLE 40MG TABLET PO SCH ×2 (06:18→15:35)
[2021-02-01 07:22] VITALS: BP 124/82
[2021-02-01 08:13] LABS: ANION GAP 5 mmol/L (5-15); CHLORIDE 112 mmol/L (98-107); CREATININE 0.65 mg/dL (0.7-1.3)
[2021-02-01] MEDS: HEPARIN 5,000 UNITS/ML, 1ML SQ SCH ×2 (08:27→22:37)
[2021-02-01] MEDS: LACTOBACILLUS CHEW TABLET PO SCH ×4 (08:27→22:38)
[2021-02-01] MEDS: SIMETHICONE 125 MG CHEW TAB PO PRN (08:27)
[2021-02-01] MEDS: ESCITALOPRAM 10MG TABLET PO SCH (08:27)
[2021-02-01] MEDS: ACETAMINOPHEN 650 MG/20.3 ML UDC PO PRN ×2 (08:31→14:18)
[2021-02-01] MEDS ORDERED: POTASSIUM PHOSPHATE 44 MEQ in SODIUM CHLORIDE 0.9% 500 ML IV ONE (11:00)
[2021-02-01] MEDS ORDERED: IRON DEXTRAN COMPLEX 25 MG in SODIUM CHLORIDE 0.9% 50 ML IV ONE (12:00)
[2021-02-01] MEDS ORDERED: EPINEPHRINE 1 MG/ML, 1ML IVPush PRN (12:00)
[2021-02-01 12:20] VITALS: BP 107/72
[2021-02-01] MEDS ORDERED: IRON DEXTRAN COMPLEX 1,300 MG in SODIUM CHLORIDE 0.9% 250 ML IV ONE (13:00)
[2021-02-01] MEDS: SIMETHICONE 125 MG CHEW TAB PO SCH (17:03)
[2021-02-01] MEDS ORDERED: MORPHINE SULFATE 4 MG/ML, 1ML ONE (18:26)
[2021-02-01] MEDS ORDERED: morphine SULFATE 10 MG/ML, 1ML IVPush ONE (18:30)
[2021-02-01 19:49] VITALS: BP 153/92
[2021-02-01] MEDS: MIRTAZAPINE 30 MG TABLET PO SCH (22:38)
[2021-02-01] MEDS: NICOTINE 21 MG/24 HR PATCH.TD24 TD SCH (22:46)
[2021-02-02 01:08] VITALS: BP 134/84
[2021-02-02] MEDS: MORPHINE SULFATE 4 MG/ML, 1ML IVPush PRN ×4 (01:39→20:16)
[2021-02-02] MEDS: SIMETHICONE 125 MG CHEW TAB PO SCH ×3 (01:40→15:31)
[2021-02-02 04:59] LABS: ANION GAP 7 mmol/L (5-15); CALCIUM 7.9 mg/dL (8.5-10.1); CHLORIDE 104 mmol/L (98-107)
[2021-02-02] MEDS ORDERED: BISACODYL 10 MG SUPP PR PRN (05:30)
[2021-02-02] MEDS: SUCRALFATE 1 GM/10 ML UDC PO SCH ×4 (05:51→20:08)
[2021-02-02] MEDS: PANTOPRAZOLE 40MG TABLET PO SCH ×2 (05:51→15:31)
[2021-02-02 06:59] VITALS: BP 134/96
[2021-02-02 07:02] VITALS: BP 118/81
[2021-02-02] MEDS: LACTOBACILLUS CHEW TABLET PO SCH ×3 (08:39→20:08)
[2021-02-02] MEDS: HEPARIN 5,000 UNITS/ML, 1ML SQ SCH ×2 (08:46→20:08)
[2021-02-02] MEDS: ESCITALOPRAM 10MG TABLET PO SCH (08:47)
[2021-02-02 12:32] VITALS: BP 113/75
[2021-02-02 19:05] VITALS: BP 120/86
[2021-02-02] MEDS: MIRTAZAPINE 30 MG TABLET PO SCH (20:08)
[2021-02-03 00:06] VITALS: BP 130/89
[2021-02-03] MEDS: SIMETHICONE 125 MG CHEW TAB PO SCH ×4 (00:20→21:27)
[2021-02-03] MEDS: MORPHINE SULFATE 4 MG/ML, 1ML IVPush PRN ×5 (00:20→22:36)
[2021-02-03] MEDS: PANTOPRAZOLE 40MG TABLET PO SCH ×2 (06:10→16:31)
[2021-02-03 07:28] VITALS: BP 125/86
[2021-02-03] MEDS: ESCITALOPRAM 10MG TABLET PO SCH (09:53)
[2021-02-03] MEDS: SUCRALFATE 1 GM/10 ML UDC PO SCH ×4 (09:53→21:11)
[2021-02-03] MEDS: LACTOBACILLUS CHEW TABLET PO SCH ×3 (09:54→21:12)
[2021-02-03] MEDS: HEPARIN 5,000 UNITS/ML, 1ML SQ SCH ×2 (09:54→21:12)
[2021-02-03] MEDS: NICOTINE 21 MG/24 HR PATCH.TD24 TD SCH (09:57)
[2021-02-03 15:12] VITALS: BP 105/73
[2021-02-03 19:38] VITALS: BP 112/75
[2021-02-03] MEDS: MIRTAZAPINE 30 MG TABLET PO SCH (21:12)
[2021-02-04] MEDS ORDERED: TEMAZEPAM 15 MG CAPSULE PO PRN (01:00)
[2021-02-04 01:06] VITALS: BP 120/79
[2021-02-04 07:36] VITALS: BP 127/84
[2021-02-04] MEDS: SIMETHICONE 125 MG CHEW TAB PO SCH ×2 (08:13→17:18)
[2021-02-04] MEDS: LACTOBACILLUS CHEW TABLET PO SCH ×3 (08:13→20:46)
[2021-02-04] MEDS: HEPARIN 5,000 UNITS/ML, 1ML SQ SCH ×2 (08:13→20:45)
[2021-02-04] MEDS: SUCRALFATE 1 GM/10 ML UDC PO SCH ×4 (08:13→20:45)
[2021-02-04] MEDS: ESCITALOPRAM 10MG TABLET PO SCH (08:17)
[2021-02-04] MEDS: NICOTINE 21 MG/24 HR PATCH.TD24 TD SCH (08:17)
[2021-02-04] MEDS: PANTOPRAZOLE 40MG TABLET PO SCH ×2 (08:17→17:18)
[2021-02-04] MEDS ORDERED: BISA10SU4 PR (09:27)
[2021-02-04] MEDS ORDERED: NICO-587 TD (09:27)
[2021-02-04] MEDS ORDERED: ACID1TAB7 PO (09:27)
[2021-02-04] MEDS ORDERED: ACET325T26 PO (09:27)
[2021-02-04] MEDS ORDERED: IBUP-1222 PO (09:27)
[2021-02-04] MEDS ORDERED: SENN-99 PO (09:27)
[2021-02-04] MEDS ORDERED: MORPHINE SULFATE 4 MG/ML, 1ML IVPush PRN (09:30)
[2021-02-04 14:39] VITALS: BP 118/81
[2021-02-04 18:52] VITALS: BP 102/67
[2021-02-04] MEDS: MIRTAZAPINE 30 MG TABLET PO SCH (20:46)
[2021-02-04] MEDS: ACETAMINOPHEN 325 MG TABLET PO PRN (20:48)
[2021-02-04] MEDS: SENNOSIDES 8.6 MG TABLET PO SCH (20:54)
[2021-02-05] MEDS: SIMETHICONE 125 MG CHEW TAB PO SCH ×3 (00:24→16:12)
[2021-02-05 01:50] VITALS: BP 96/62
[2021-02-05] MEDS: SUCRALFATE 1 GM/10 ML UDC PO SCH ×4 (06:31→20:37)
[2021-02-05] MEDS: PANTOPRAZOLE 40MG TABLET PO SCH ×2 (06:32→16:12)
[2021-02-05 06:42] VITALS: BP 127/86
[2021-02-05] MEDS ORDERED: MAGNESIUM SULFATE PMX 4GM/100M 100 ML IV ONE (09:00)
[2021-02-05] MEDS: ESCITALOPRAM 10MG TABLET PO SCH (09:05)
[2021-02-05] MEDS: HEPARIN 5,000 UNITS/ML, 1ML SQ SCH ×2 (09:05→20:37)
[2021-02-05] MEDS: LACTOBACILLUS CHEW TABLET PO SCH ×3 (09:05→20:37)
[2021-02-05] MEDS: NICOTINE 21 MG/24 HR PATCH.TD24 TD SCH (09:05)
[2021-02-05 14:07] VITALS: BP 112/76
[2021-02-05 18:47] VITALS: BP 114/78
[2021-02-05] MEDS: ACETAMINOPHEN 325 MG TABLET PO PRN (20:37)
[2021-02-05] MEDS: MIRTAZAPINE 30 MG TABLET PO SCH (20:37)
[2021-02-05] MEDS: SENNOSIDES 8.6 MG TABLET PO SCH (20:38)
[2021-02-06] MEDS: SIMETHICONE 125 MG CHEW TAB PO SCH ×3 (00:40→15:44)
[2021-02-06 01:50] VITALS: BP 108/72
[2021-02-06] MEDS: SUCRALFATE 1 GM/10 ML UDC PO SCH ×4 (06:14→20:39)
[2021-02-06] MEDS: PANTOPRAZOLE 40MG TABLET PO SCH ×2 (06:14→15:47)
[2021-02-06 08:20] VITALS: BP 120/77
[2021-02-06] MEDS: LACTOBACILLUS CHEW TABLET PO SCH ×3 (09:25→20:39)
[2021-02-06] MEDS: ESCITALOPRAM 10MG TABLET PO SCH (09:25)
[2021-02-06] MEDS: IBUPROFEN 600 MG TABLET PO PRN ×2 (09:26→15:44)
[2021-02-06] MEDS: HEPARIN 5,000 UNITS/ML, 1ML SQ SCH ×2 (09:26→20:39)
[2021-02-06] MEDS: NICOTINE 21 MG/24 HR PATCH.TD24 TD SCH (09:26)
[2021-02-06] MEDS: ACETAMINOPHEN 325 MG TABLET PO PRN ×2 (13:04→19:27)
[2021-02-06 13:24] VITALS: BP 107/67
[2021-02-06] MEDS: ONDANSETRON 2MG/ML, 2ML IVPush PRN (13:43)
[2021-02-06 19:27] VITALS: BP 95/62
[2021-02-06] MEDS: SENNOSIDES 8.6 MG TABLET PO SCH (20:39)
[2021-02-06] MEDS: MIRTAZAPINE 30 MG TABLET PO SCH (20:39)
[2021-02-07] MEDS: SIMETHICONE 125 MG CHEW TAB PO SCH ×3 (00:37→15:24)
[2021-02-07 00:38] VITALS: BP 116/75
[2021-02-07] MEDS: PANTOPRAZOLE 40MG TABLET PO SCH ×2 (06:02→16:53)
[2021-02-07] MEDS: SUCRALFATE 1 GM/10 ML UDC PO SCH ×4 (06:02→21:10)
[2021-02-07 07:15] VITALS: BP 114/73
[2021-02-07] MEDS: HEPARIN 5,000 UNITS/ML, 1ML SQ SCH ×2 (08:00→21:11)
[2021-02-07] MEDS: ESCITALOPRAM 10MG TABLET PO SCH (08:01)
[2021-02-07] MEDS: ACETAMINOPHEN 325 MG TABLET PO PRN ×2 (08:01→15:23)
[2021-02-07] MEDS: LACTOBACILLUS CHEW TABLET PO SCH ×3 (08:01→21:10)
[2021-02-07] MEDS: NICOTINE 21 MG/24 HR PATCH.TD24 TD SCH (08:02)
[2021-02-07] MEDS: IBUPROFEN 600 MG TABLET PO PRN (11:51)
[2021-02-07 13:07] VITALS: BP 103/63
[2021-02-07 18:45] VITALS: BP 100/65
[2021-02-07] MEDS: SENNOSIDES 8.6 MG TABLET PO SCH ×2 (21:00→21:10)
[2021-02-07] MEDS: MIRTAZAPINE 30 MG TABLET PO SCH (21:10)
[2021-02-08] MEDS: SIMETHICONE 125 MG CHEW TAB PO SCH ×2 (00:30→08:18)
[2021-02-08 00:56] VITALS: BP 175/105
[2021-02-08] MEDS: PANTOPRAZOLE 40MG TABLET PO SCH (05:24)
[2021-02-08 07:19] VITALS: BP 119/78
[2021-02-08] MEDS: IBUPROFEN 600 MG TABLET PO PRN (08:16)
[2021-02-08] MEDS: ESCITALOPRAM 10MG TABLET PO SCH (08:17)
[2021-02-08] MEDS: LACTOBACILLUS CHEW TABLET PO SCH (08:18)
[2021-02-08] MEDS: SUCRALFATE 1 GM/10 ML UDC PO SCH ×2 (08:18→11:46)
[2021-02-08] MEDS: HEPARIN 5,000 UNITS/ML, 1ML SQ SCH (08:20)
[2021-02-08] MEDS: NICOTINE 21 MG/24 HR PATCH.TD24 TD SCH (08:20)
[2021-02-08 12:14] VITALS: BP 113/78
== END 2021-02-08 16:32 | disposition home or self-care (01) | DRG 469 ==
LOC: SUATTDRO 12:22 → ED 12:30 → 3N 13:30 → 4WST 15:00 → ED 15:01 → 4WST 15:01 → ED 15:44 → 4WST 15:47
PROVIDERS: ADMIT Internal Medicine; ATTEND Family Medicine
PROC: 0DH63UZ Insertion of Feeding Device into Stomach, Percutaneous Approach (ICD-10-PCS; 2021-01-30)
PROC: 0D758ZZ Dilation of Esophagus, Via Natural or Artificial Opening Endoscopic (ICD-10-PCS; principal; 2021-01-30 11:30)
DX: N17.0 Acute kidney failure with tubular necrosis (principal); E43 Unspecified severe protein-calorie malnutrition; K22.2 Esophageal obstruction; K22.10 Ulcer of esophagus without bleeding; E83.39 Other disorders of phosphorus metabolism; E83.42 Hypomagnesemia; E83.52 Hypercalcemia; Z93.1 Gastrostomy status; Z20.822 Contact with and (suspected) exposure to COVID-19; D50.9 Iron deficiency anemia, unspecified; F17.200 Nicotine dependence, unspecified, uncomplicated; D72.829 Elevated white blood cell count, unspecified; Z68.1 Body mass index [BMI] 19.9 or less, adult; E86.0 Dehydration; E87.6 Hypokalemia; I10 Essential (primary) hypertension; I49.9 Cardiac arrhythmia, unspecified; K80.20 Calculus of gallbladder without cholecystitis without obstruction; Z85.01 Personal history of malignant neoplasm of esophagus; Z87.19 Personal history of other diseases of the digestive system
CPT/HCPCS: 36415; 74018; 80048; 80053; 82330; 82607; 83540; 83550; 83690; 83735; 84100; 84484; 85025; 87040; 87635; 93005; 96374; B4087; G0378; J1170; J1644; J1750; J2405; J2704; J3010; J3480; C9113; J2060; J2270; J3410; J3475; J7030; J7040; J7050

== ENCOUNTER 2021-02-13 15:51 | Inpatient (IN) | payer MEDICAID ==
[~2021-02-13] VITALS: Ht 188 cm; Wt 65.0 kg
[~2021-02-13 15:51] MED LIST changes: +ACET325T26 PO; +ACID1TAB7 PO; +BISA10SU4 PR; +IBUP-1222 PO; +NICO-587 TD; +SENN-99 PO
--- NOTE | 2021-02-13 16:40 | NUR ---
PT ON BP CUFF, PULSE OX. VS UPDATED IN COMPUTER. PT STATES G TUBE STOPPED WORKING TWO DAYS AGO. PT UNABLE TO FLUSH OR PUT IN TUBE FEEDINGS. PT CURRENTLY TAKING PO MEDS, ABLE TO SWALLOW EFFECTIVELY. PT STATES PROCEDURE WAS DILATION OF ESOPHAGUS BUT GTUBE PLACED B/C OF LENGTH OF TIME W/POOR NUTRITION PRIOR TO PROCEDURE. 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 PT STATES ABD PAIN AROUND GTUBE, SOME LEAKING AT INSERTION SITE, NO DRESSING IN PLACE. CALL LIGHT WITHIN REACH.
--- NOTE | 2021-02-13 17:17 | NUR ---
DR BLOOM IN TO SEE PT.
[2021-02-13] MEDS ORDERED: SODIUM CHLORIDE 0.9% 1,000ML IVBOLUS ONE (17:30)
[2021-02-13] MEDS ORDERED: ONDANSETRON 2MG/ML, 2ML IVPush ONE (17:30)
[2021-02-13] MEDS ORDERED: ONDANSETRON 2MG/ML, 2ML ONE (17:46)
[2021-02-13] MEDS ORDERED: MORPHINE SULFATE 4 MG/ML, 1ML ONE ×3 (17:47→22:14)
[2021-02-13] MEDS: MORPHINE SULFATE 4 MG/ML, 1ML IVPush PRN ×2 (17:51→20:12)
--- NOTE | 2021-02-13 17:52 | NUR ---
IV PLACED, LABS DRAWN WITH START. PT MEDICATED PER ERP ORDER FOR 03/26 ABD PAIN, NAUSEA. NS BOLUS INFUSING. CALL LIGHT WITHIN REACH.
[2021-02-13 17:57] LABS: MEAN CORPUSCULAR HEMOGLOBIN 30.3 pg (27.5-34.5); MEAN CORPUSCULAR HGB CONC 33.9 g/dL (33.2-36.2); MEAN PLATELET VOLUME 7.2 fL (7.4-10.4); RED BLOOD COUNT 3.11 x10^6/uL (4.38-5.82); RED CELL DISTRIBUTION WIDTH 14.6 % (9.4-14.8)
[2021-02-13 18:09] LABS: ALANINE AMINOTRANSFERASE 55 U/L (12-78); ALBUMIN 2.3 g/dL (3.4-5.0); CALCIUM 9.4 mg/dL (8.5-10.1); CHLORIDE 88 mmol/L (98-107); CREATININE 0.71 mg/dL (0.7-1.3)
[2021-02-13 18:16] LABS: ALKALINE PHOSPHATASE 122 U/L (45-117); ANION GAP 12 mmol/L (5-15); BILIRUBIN,TOTAL 0.6 mg/dL (0.2-1.0); TOTAL PROTEIN 7.9 g/dL (6.4-8.2)
[2021-02-13 18:33] LABS: PLATELET COUNT 1144 x10^3/uL (130-400)
[2021-02-13] MEDS ORDERED: OMNIPAQUE 350 MG/ML, 100ML BOTTLE ONE (18:46)
--- NOTE | 2021-02-13 18:47 | NUR ---
report from marah BURNS, pt care transferred at this time. Patient is resting comfortably in bed. back from ct at this time. Bed in lowest, rails engaged, call light on lap. EVELINE.
--- NOTE | 2021-02-13 18:53 | NUR ---
PT BACK FROM CT. REPORT TO ROSALBA BURNS.
[2021-02-13 19:23] LABS: BAND#(MANUAL) 2.41 x10^3/uL; BANDS%(MANUAL) 19 % (0-7); LYMPH#(MANUAL) 0.89 x10^3/uL (1-3.4); LYMPHS% (MANUAL) 7 % (22-44); MONOS#(MANUAL) 0.64 x10^3/uL (0.3-2.7); MONOS% (MANUAL) 5 % (2-9); SEG#(MANUAL) 8.76 x10^3/uL (1.8-6.8); SEGS% (MANUAL) 69 % (42-75)
[2021-02-13 19:24] LABS: ANISOCYTOSIS 1+
[2021-02-13 19:25] LABS: <PLATELET ESTIMATE> INCREASED; SMALL PLATELETS 1+
--- NOTE | 2021-02-13 19:58 | NUR ---
pt assisted up to bedside commode. pt transferred with a smooth and steady gait. pt states that he "feels as though i have to pee but is unable to at this time" pt nad, resting on gurney, SO at bs, no change in condition, wctm. to be admitted
[2021-02-13] MEDS ORDERED: PIPERACILLIN/TAZO 3.375 GM in DEXTROSE 5% 50 ML IVPB ONE (20:00)
[2021-02-13] MEDS ORDERED: SODIUM CHLORIDE 0.9%, 500ML IVBOLUS ONE (20:00)
[2021-02-13 20:56] VITALS: BP 92/62
[2021-02-13] MEDS ORDERED: IBUPROFEN 600 MG TABLET PO PRN (22:00)
[2021-02-13] MEDS ORDERED: BISACODYL 10 MG SUPP PR PRN (22:00)
[2021-02-13] MEDS ORDERED: ONDANSETRON 2MG/ML, 2ML IVPush PRN (22:00)
[2021-02-13] MEDS ORDERED: ACETAMINOPHEN 325 MG TABLET PO PRN (22:00)
[2021-02-13] MEDS ORDERED: ZOLPIDEM 5MG TABLET PO PRN (22:00)
[2021-02-13] MEDS ORDERED: ENALAPRILAT 1.25 MG/ML, 2ML IVPush PRN (22:00)
[2021-02-13] MEDS: morphine SULFATE 10 MG/ML, 1ML IVPush PRN (22:17)
[2021-02-13] MEDS: SIMETHICONE 80 MG CHEW TAB PO PRN (22:21)
[2021-02-13] MEDS: LACTATED RINGERS 1,000 ML IV SCH (22:24)
[2021-02-13] MEDS: NICOTINE 21 MG/24 HR PATCH.TD24 TD SCH (23:17)
[2021-02-13] MEDS: OXYcodone IR 5MG TABLET PO PRN ×2 (23:19→23:57)
[2021-02-14 00:35] VITALS: BP 94/61
[2021-02-14] MEDS ORDERED: MORPHINE SULFATE 4 MG/ML, 1ML ONE (04:00)
[2021-02-14] MEDS: morphine SULFATE 10 MG/ML, 1ML IVPush PRN ×5 (04:06→21:23)
[2021-02-14] MEDS: PIPERACILLIN/TAZO 3.375 GM in DEXTROSE 5% 50 ML IVPB SCH ×4 (04:06→21:22)
[2021-02-14] MEDS: SUCRALFATE 1 GM TABLET PO SCH ×5 (04:43→22:02)
[2021-02-14 05:53] LABS: MEAN CORPUSCULAR HEMOGLOBIN 30.4 pg (27.5-34.5); MEAN CORPUSCULAR HGB CONC 34.1 g/dL (33.2-36.2); MEAN PLATELET VOLUME 7.3 fL (7.4-10.4); PLATELET COUNT 926 x10^3/uL (130-400); RED BLOOD COUNT 2.54 x10^6/uL (4.38-5.82); RED CELL DISTRIBUTION WIDTH 14.5 % (9.4-14.8)
[2021-02-14] MEDS ORDERED: OMEPRAZOLE 20 MG CAPSULE.DR PO SCH (06:00)
[2021-02-14 06:04] LABS: ANION GAP 8 mmol/L (5-15); CALCIUM 8.6 mg/dL (8.5-10.1); CHLORIDE 95 mmol/L (98-107)
[2021-02-14 06:05] LABS: CREATININE 0.51 mg/dL (0.7-1.3)
[2021-02-14 06:22] LABS: <PLATELET ESTIMATE> INCREASED; <RBC MORPHOLOGY> NORMAL; BAND#(MANUAL) 2.55 x10^3/uL; BANDS%(MANUAL) 28 % (0-7); EOS#(MANUAL) 0.09 x10^3/uL (0.0-0.4); EOS% (MANUAL) 1 % (1-7); LYMPH#(MANUAL) 0.91 x10^3/uL (1-3.4); LYMPHS% (MANUAL) 10 % (22-44); MONOS#(MANUAL) 0.64 x10^3/uL (0.3-2.7); MONOS% (MANUAL) 7 % (2-9); SEG#(MANUAL) 4.91 x10^3/uL (1.8-6.8); SEGS% (MANUAL) 54 % (42-75)
[2021-02-14 06:23] LABS: SMALL PLATELETS 1+
[2021-02-14 07:43] VITALS: BP 99/66
[2021-02-14] MEDS ORDERED: NICOTINE 21 MG/24 HR PATCH.TD24 TD SCH (09:00)
[2021-02-14] MEDS: hydrOXyzine 50MG TABLET PO SCH ×3 (09:00→22:03)
[2021-02-14] MEDS: TAMSULOSIN 0.4 MG CAP.ER.24H PO SCH (10:24)
[2021-02-14] MEDS: ESCITALOPRAM 10MG TABLET PO SCH (10:25)
[2021-02-14] MEDS: TIZANIDINE 2MG TABLET PO SCH (10:25)
[2021-02-14] MEDS: GABAPENTIN 100 MG CAPSULE PO SCH (10:25)
[2021-02-14] MEDS ORDERED: CHLORHEXIDINE 15 ML UDC ONE (10:30)
[2021-02-14] MEDS ORDERED: CHLORHEXIDINE 15 ML UDC PO ONE (10:30)
[2021-02-14] MEDS: PANTOPRAZOLE 40 MG IV IVPush SCH ×2 (10:56→21:22)
[2021-02-14] MEDS ORDERED: PROPOFOL 50 ML ONE (11:18)
[2021-02-14] MEDS ORDERED: PROMETHAZINE 25 MG/ML, 1ML IVPush PRN (11:30)
[2021-02-14] MEDS ORDERED: ACETAMINOPHEN 325 MG TABLET PO PRN (11:30)
[2021-02-14] MEDS ORDERED: EPHEDRINE 50 MG/ML, 1ML IVPush PRN (11:30)
[2021-02-14] MEDS ORDERED: LABETALOL 5MG/ML, 20ML IV PRN (11:30)
[2021-02-14] MEDS ORDERED: ONDANSETRON 2MG/ML, 2ML IVPush PRN (11:30)
[2021-02-14] MEDS ORDERED: hydrALAzine 20 MG/ML, 1ML IV PRN ×2 (11:30→21:30)
[2021-02-14 12:55] VITALS: BP 102/71
[2021-02-14] MEDS ORDERED: ENOXAPARIN 30 MG/0.3 ML SQ SCH (16:00)
[2021-02-14] MEDS ORDERED: FENTANYL PF 250 MCG/5ML ONE (18:18)
[2021-02-14] MEDS ORDERED: SUGAMMADEX 200 MG/2 ML IVPush ONE (19:21)
[2021-02-14] MEDS ORDERED: FENTANYL PF 100 MCG/2ML ONE (19:36)
[2021-02-14] MEDS ORDERED: HYDROmorphone 1 MG/ML, 1ML INJ ONE (19:36)
[2021-02-14] MEDS: FENTANYL PF 100 MCG/2ML IV PRN ×2 (19:49→19:56)
[2021-02-14] MEDS: LACTATED RINGERS 1,000 ML IV SCH (20:00)
[2021-02-14] MEDS ORDERED: GLYCOPYRROLATE 0.2MG/1ML, 5ML ONE (20:02)
[2021-02-14] MEDS ORDERED: CEFAZOLIN 1,000 MG ONE (20:02)
[2021-02-14] MEDS ORDERED: ROCURONIUM 10MG/ML,5ML ONE (20:02)
[2021-02-14] MEDS ORDERED: NEOSTIGMINE 1 MG/ML, 10ML ONE (20:02)
[2021-02-14] MEDS ORDERED: ONDANSETRON 2MG/ML, 2ML ONE (20:02)
[2021-02-14] MEDS ORDERED: SUCCINYLCHOLINE 20 MG/ML, 10ML ONE (20:02)
[2021-02-14] MEDS ORDERED: PROPOFOL 10 MG/ML, 20ML ONE (20:02)
[2021-02-14] MEDS: HYDROmorphone 1 MG/ML, 1ML INJ IVPush PRN ×2 (20:08→20:12)
[2021-02-14] MEDS: MIRTAZAPINE 30 MG TAB.RAPDIS PO SCH ×2 (21:00→22:02)
[2021-02-14] MEDS: NICOTINE 21 MG/24 HR PATCH.TD24 TD SCH (21:23)
[2021-02-14] MEDS ORDERED: ONDANSETRON 2MG/ML, 2ML IV PRN (21:30)
[2021-02-14] MEDS ORDERED: ENALAPRILAT 1.25 MG/ML, 2ML IV PRN (21:30)
[2021-02-14] MEDS: D5%-LACTATED RINGERS 1,000 ML IV SCH (21:30)
[2021-02-14] MEDS ORDERED: DIPHENHYDRAMINE 25 MG CAPSULE PO PRN (21:30)
[2021-02-14] MEDS ORDERED: SODIUM CHLORIDE 0.9%, 500ML IV PRN (21:30)
[2021-02-14] MEDS ORDERED: ACETAMINOPHEN 650 MG SUPP PR PRN (21:30)
[2021-02-14] MEDS ORDERED: DIPHENHYDRAMINE 50 MG/ML, 1ML IV PRN (21:30)
[2021-02-14] MEDS ORDERED: KETOROLAC 30 MG/1 ML IV PRN (21:30)
[2021-02-14] MEDS: HYDROmorphone 2 MG/ML, 1ML IVPush PRN (23:59)
[2021-02-15] MEDS: PIPERACILLIN/TAZO 3.375 GM in DEXTROSE 5% 50 ML IVPB SCH ×3 (04:18→21:35)
[2021-02-15 04:19] LABS: MEAN CORPUSCULAR HEMOGLOBIN 30.1 pg (27.5-34.5); MEAN CORPUSCULAR HGB CONC 33.7 g/dL (33.2-36.2); MEAN PLATELET VOLUME 6.9 fL (7.4-10.4); PLATELET COUNT 962 x10^3/uL (130-400); RED BLOOD COUNT 2.78 x10^6/uL (4.38-5.82); RED CELL DISTRIBUTION WIDTH 14.8 % (9.4-14.8)
[2021-02-15 04:28] LABS: ANION GAP 6 mmol/L (5-15); CALCIUM 8.3 mg/dL (8.5-10.1); CHLORIDE 99 mmol/L (98-107); CREATININE 0.56 mg/dL (0.7-1.3)
[2021-02-15 04:29] LABS: ALANINE AMINOTRANSFERASE 33 U/L (12-78); ALBUMIN 1.5 g/dL (3.4-5.0)
[2021-02-15 04:31] LABS: ALKALINE PHOSPHATASE 70 U/L (45-117); BILIRUBIN,TOTAL 0.4 mg/dL (0.2-1.0)
[2021-02-15 04:49] LABS: BAND#(MANUAL) 1.98 x10^3/uL; BANDS%(MANUAL) 25 % (0-7); LYMPH#(MANUAL) 0.87 x10^3/uL (1-3.4); LYMPHS% (MANUAL) 11 % (22-44); MONOS#(MANUAL) 0.16 x10^3/uL (0.3-2.7); MONOS% (MANUAL) 2 % (2-9); MYELOCYTES# (MANUAL) 0.08 x10^3/uL (0-0); MYELOCYTES% (MANUAL) 1 % (0-0); SEG#(MANUAL) 4.82 x10^3/uL (1.8-6.8); SEGS% (MANUAL) 61 % (42-75)
[2021-02-15 04:52] LABS: <PLATELET ESTIMATE> INCREASED; ANISOCYTOSIS 1+; SMALL PLATELETS 1+
[2021-02-15] MEDS: D5%-LACTATED RINGERS 1,000 ML IV SCH (05:47)
[2021-02-15] MEDS: SUCRALFATE 1 GM TABLET PO SCH ×5 (07:00→21:26)
[2021-02-15] MEDS: HYDROmorphone 2 MG/ML, 1ML IVPush PRN ×3 (08:23→23:35)
[2021-02-15] MEDS: ESCITALOPRAM 10MG TABLET PO SCH (09:00)
[2021-02-15] MEDS: TAMSULOSIN 0.4 MG CAP.ER.24H PO SCH (09:00)
[2021-02-15] MEDS: hydrOXyzine 50MG TABLET PO SCH ×2 (09:00→21:26)
[2021-02-15] MEDS: TIZANIDINE 2MG TABLET PO SCH (09:00)
[2021-02-15] MEDS: GABAPENTIN 100 MG CAPSULE PO SCH (09:00)
[2021-02-15] MEDS: PANTOPRAZOLE 40 MG IV IVPush SCH ×2 (09:30→21:27)
[2021-02-15] MEDS ORDERED: ONDANSETRON 2MG/ML, 2ML ONE (09:32)
[2021-02-15] MEDS ORDERED: PROPOFOL 10 MG/ML, 20ML ONE (09:32)
[2021-02-15] MEDS ORDERED: ROCURONIUM 10MG/ML,5ML ONE (09:32)
[2021-02-15] MEDS ORDERED: CALCIUM CHLORIDE 13.6 MEQ/10 ML ONE (09:32)
[2021-02-15] MEDS ORDERED: SUCCINYLCHOLINE 20 MG/ML, 10ML ONE (09:32)
[2021-02-15] MEDS ORDERED: ESMOLOL 100 MG/10 ML ONE (09:32)
[2021-02-15] MEDS ORDERED: FENTANYL PF 250 MCG/5ML ONE (13:07)
[2021-02-15] MEDS ORDERED: HYDROmorphone 1 MG/ML, 1ML INJ ONE (13:07)
[2021-02-15] MEDS ORDERED: LABETALOL 5MG/ML, 20ML IV PRN (14:30)
[2021-02-15] MEDS ORDERED: OXYcodone 5 MG/5 ML ORAL.SOL UDC PO PRN (14:30)
[2021-02-15] MEDS ORDERED: EPHEDRINE 50 MG/ML, 1ML IVPush PRN (14:30)
[2021-02-15] MEDS ORDERED: hydrALAzine 20 MG/ML, 1ML IV PRN (14:30)
[2021-02-15] MEDS ORDERED: ACETAMINOPHEN 325 MG TABLET PO PRN (14:30)
[2021-02-15] MEDS ORDERED: MEPERIDINE/PF 25MG/0.5ML IVPush PRN (14:30)
[2021-02-15] MEDS ORDERED: METHOCARBAMOL 1,000 MG in DEXTROSE 5% 100 ML IV PRN (14:30)
[2021-02-15] MEDS ORDERED: FENTANYL PF 100 MCG/2ML IV PRN (14:30)
[2021-02-15] MEDS ORDERED: PROMETHAZINE 25 MG/ML, 1ML IVPush PRN (14:30)
[2021-02-15] MEDS ORDERED: LORazepam 2 MG/ML, 1ML IVPush PRN (14:30)
[2021-02-15] MEDS ORDERED: ONDANSETRON 2MG/ML, 2ML IVPush PRN (14:30)
[2021-02-15] MEDS ORDERED: hydrALAzine 20 MG/ML, 1ML ONE (14:38)
[2021-02-15] MEDS ORDERED: HYDROmorphone 2 MG/ML, 1ML ONE (14:38)
[2021-02-15] MEDS: HYDROmorphone 1 MG/ML, 1ML INJ IVPush PRN ×3 (14:40→15:11)
[2021-02-15] MEDS ORDERED: LABETALOL 5MG/ML, 20ML ONE (15:01)
[2021-02-15] MEDS ORDERED: D5%-LACTATED RINGERS 1,000 ML IV SCH (16:30)
[2021-02-15] MEDS ORDERED: KETOROLAC 30 MG/1 ML IV PRN (16:30)
[2021-02-15] MEDS ORDERED: ONDANSETRON 2MG/ML, 2ML IV PRN (16:30)
[2021-02-15] MEDS ORDERED: HYDROmorphone PCA 30 MG/30 ML IV PRN (16:30)
[2021-02-15] MEDS: METOPROLOL TARTRATE 25 MG TAB PO SCH (17:41)
[2021-02-15 20:10] VITALS: BP 107/79
[2021-02-15] MEDS: MIRTAZAPINE 30 MG TAB.RAPDIS PO SCH (21:26)
[2021-02-15] MEDS: NICOTINE 21 MG/24 HR PATCH.TD24 TD SCH (21:27)
[2021-02-16 00:34] VITALS: BP 131/88
[2021-02-16] MEDS: D5%-LACTATED RINGERS 1,000 ML IV SCH ×3 (01:58→23:59)
[2021-02-16] MEDS: HYDROmorphone 2 MG/ML, 1ML IVPush PRN ×5 (02:33→21:07)
[2021-02-16] MEDS: PIPERACILLIN/TAZO 3.375 GM in DEXTROSE 5% 50 ML IVPB SCH ×3 (04:51→20:49)
[2021-02-16 04:54] VITALS: BP 139/87
[2021-02-16] MEDS: METOPROLOL TARTRATE 25 MG TAB PO SCH ×2 (04:56→16:30)
[2021-02-16 05:52] LABS: MEAN CORPUSCULAR HEMOGLOBIN 30.3 pg (27.5-34.5); MEAN CORPUSCULAR HGB CONC 34.2 g/dL (33.2-36.2); MEAN PLATELET VOLUME 7.4 fL (7.4-10.4); PLATELET COUNT 911 x10^3/uL (130-400); RED BLOOD COUNT 2.47 x10^6/uL (4.38-5.82); RED CELL DISTRIBUTION WIDTH 15.2 % (9.4-14.8)
[2021-02-16 06:04] LABS: ALBUMIN 1.3 g/dL (3.4-5.0); ANION GAP 5 mmol/L (5-15); CALCIUM 7.9 mg/dL (8.5-10.1); CHLORIDE 100 mmol/L (98-107); CREATININE 0.58 mg/dL (0.7-1.3)
[2021-02-16 06:40] LABS: LYMPH#(MANUAL) 1.15 x10^3/uL (1-3.4); LYMPHS% (MANUAL) 14 % (22-44); METAMYELOCYTES# (MANUAL) 0.16 x10^3/uL (0-0); METAMYELOCYTES% (MANUAL) 2 % (0-1); MONOS#(MANUAL) 0.49 x10^3/uL (0.3-2.7); MONOS% (MANUAL) 6 % (2-9); MYELOCYTES# (MANUAL) 0.08 x10^3/uL (0-0); MYELOCYTES% (MANUAL) 1 % (0-0)
[2021-02-16 06:42] LABS: BAND#(MANUAL) 1.07 x10^3/uL; BANDS%(MANUAL) 13 % (0-7); SEG#(MANUAL) 5.25 x10^3/uL (1.8-6.8); SEGS% (MANUAL) 64 % (42-75)
[2021-02-16 06:43] LABS: ANISOCYTOSIS 1+
[2021-02-16 06:44] LABS: <PLATELET ESTIMATE> INCREASED; PMNS WITH VACUOLES 1+; SMALL PLATELETS 1+
[2021-02-16 07:23] VITALS: BP 137/87
[2021-02-16] MEDS: hydrOXyzine 50MG TABLET PO SCH ×2 (08:18→20:49)
[2021-02-16] MEDS: ESCITALOPRAM 10MG TABLET PO SCH (08:18)
[2021-02-16] MEDS: GABAPENTIN 100 MG CAPSULE PO SCH (08:18)
[2021-02-16] MEDS: TIZANIDINE 2MG TABLET PO SCH (08:18)
[2021-02-16] MEDS: TAMSULOSIN 0.4 MG CAP.ER.24H PO SCH (08:18)
[2021-02-16] MEDS: PANTOPRAZOLE 40 MG IV IVPush SCH ×2 (08:19→20:49)
[2021-02-16] MEDS: SUCRALFATE 1 GM/10 ML UDC PO SCH ×4 (08:57→20:49)
[2021-02-16] MEDS: SIMETHICONE 80 MG CHEW TAB PO PRN ×2 (08:57→18:12)
--- NOTE | 2021-02-16 11:47 | NUR ---
TF recs: Osmolite 1.2, trickle feeds start at 10 ml/hr. End goal rate of 20 ml/hr Addendum: 02/16/21 at [address] Amended: Links added.
[2021-02-16 12:43] VITALS: BP 132/79
[2021-02-16 19:42] VITALS: BP 109/78
[2021-02-16] MEDS: MIRTAZAPINE 30 MG TAB.RAPDIS PO SCH (20:49)
[2021-02-16] MEDS: NICOTINE 21 MG/24 HR PATCH.TD24 TD SCH (20:50)
[2021-02-17] VITALS (10 sets, daily range): BP systolic 100–123; BP diastolic 65–77
[2021-02-17 05:13] LABS: BASOPHILS % (AUTO) 0 % (0-1); EOSINOPHILS % (AUTO) 2 % (1-7); LYMPHOCYTES % (AUTO) 11 % (22-44); MEAN CORPUSCULAR HEMOGLOBIN 30.5 pg (27.5-34.5); MEAN CORPUSCULAR HGB CONC 34.7 g/dL (33.2-36.2); MEAN PLATELET VOLUME 6.8 fL (7.4-10.4); MONOCYTES % (AUTO) 12 % (2-9); NEUTROPHILS % (AUTO) 75 % (42-75); PLATELET COUNT 827 x10^3/uL (130-400); RED BLOOD COUNT 2.12 x10^6/uL (4.38-5.82); RED CELL DISTRIBUTION WIDTH 15.2 % (9.4-14.8)
[2021-02-17 05:26] LABS: ALBUMIN 1.3 g/dL (3.4-5.0); ANION GAP 6 mmol/L (5-15); CALCIUM 7.8 mg/dL (8.5-10.1); CHLORIDE 101 mmol/L (98-107)
[2021-02-17 05:27] LABS: CREATININE 0.46 mg/dL (0.7-1.3)
[2021-02-17] MEDS: HYDROmorphone 2 MG/ML, 1ML IVPush PRN ×3 (05:48→21:32)
[2021-02-17] MEDS: PIPERACILLIN/TAZO 3.375 GM in DEXTROSE 5% 50 ML IVPB SCH ×3 (05:48→21:31)
[2021-02-17] MEDS: SUCRALFATE 1 GM/10 ML UDC PO SCH ×4 (05:49→21:31)
[2021-02-17] MEDS: METOPROLOL TARTRATE 25 MG TAB PO SCH ×2 (05:57→16:51)
[2021-02-17] MEDS: TAMSULOSIN 0.4 MG CAP.ER.24H PO SCH (07:51)
[2021-02-17] MEDS: ESCITALOPRAM 10MG TABLET PO SCH (07:51)
[2021-02-17] MEDS: PANTOPRAZOLE 40 MG IV IVPush SCH ×2 (07:51→21:31)
[2021-02-17] MEDS: GABAPENTIN 100 MG CAPSULE PO SCH (07:51)
[2021-02-17] MEDS: hydrOXyzine 50MG TABLET PO SCH ×2 (07:51→21:31)
[2021-02-17] MEDS: TIZANIDINE 2MG TABLET PO SCH (07:51)
[2021-02-17] MEDS: D5%-LACTATED RINGERS 1,000 ML IV SCH ×2 (12:25→23:27)
[2021-02-17] MEDS ORDERED: POLYETHYLENE GLYCOL 17 GM PACKET PO PRN (12:30)
[2021-02-17] MEDS: SIMETHICONE 80 MG CHEW TAB PO PRN (21:31)
[2021-02-17] MEDS: MIRTAZAPINE 30 MG TAB.RAPDIS PO SCH (21:31)
[2021-02-17] MEDS: NICOTINE 21 MG/24 HR PATCH.TD24 TD SCH (21:31)
[2021-02-18 01:07] VITALS: BP 121/83
[2021-02-18] MEDS: HYDROmorphone 2 MG/ML, 1ML IVPush PRN ×4 (01:23→21:24)
[2021-02-18 04:39] LABS: MEAN CORPUSCULAR HEMOGLOBIN 30.1 pg (27.5-34.5); MEAN CORPUSCULAR HGB CONC 34.4 g/dL (33.2-36.2); MEAN PLATELET VOLUME 6.8 fL (7.4-10.4); PLATELET COUNT 813 x10^3/uL (130-400); RED BLOOD COUNT 2.53 x10^6/uL (4.38-5.82); RED CELL DISTRIBUTION WIDTH 15.4 % (9.4-14.8)
[2021-02-18 04:49] LABS: ALBUMIN 1.4 g/dL (3.4-5.0); ANION GAP 6 mmol/L (5-15); CALCIUM 7.8 mg/dL (8.5-10.1); CHLORIDE 101 mmol/L (98-107)
[2021-02-18 05:41] LABS: <PLATELET ESTIMATE> INCREASED; ANISOCYTOSIS 1+; BANDS%(MANUAL) 1 % (0-7); EOS#(MANUAL) 0.39 x10^3/uL (0.0-0.4); EOS% (MANUAL) 4 % (1-7); LYMPH#(MANUAL) 1.75 x10^3/uL (1-3.4); LYMPHS% (MANUAL) 18 % (22-44); METAMYELOCYTES# (MANUAL) 0.19 x10^3/uL (0-0); METAMYELOCYTES% (MANUAL) 2 % (0-1); MONOS#(MANUAL) 0.58 x10^3/uL (0.3-2.7); MONOS% (MANUAL) 6 % (2-9); SEG#(MANUAL) 6.69 x10^3/uL (1.8-6.8); SEGS% (MANUAL) 69 % (42-75); SMALL PLATELETS 1+
[2021-02-18 05:58] VITALS: BP 133/90
[2021-02-18] MEDS: PIPERACILLIN/TAZO 3.375 GM in DEXTROSE 5% 50 ML IVPB SCH ×3 (05:59→21:14)
[2021-02-18] MEDS: METOPROLOL TARTRATE 25 MG TAB PO SCH ×2 (05:59→17:05)
[2021-02-18] MEDS: SUCRALFATE 1 GM/10 ML UDC PO SCH ×4 (06:00→21:14)
[2021-02-18 06:59] VITALS: BP 120/84
[2021-02-18] MEDS: TAMSULOSIN 0.4 MG CAP.ER.24H PO SCH (08:47)
[2021-02-18] MEDS: ESCITALOPRAM 10MG TABLET PO SCH (08:47)
[2021-02-18] MEDS: hydrOXyzine 50MG TABLET PO SCH ×2 (08:48→21:14)
[2021-02-18] MEDS: PANTOPRAZOLE 40 MG IV IVPush SCH ×2 (08:50→21:14)
[2021-02-18] MEDS: TIZANIDINE 2MG TABLET PO SCH (08:50)
[2021-02-18] MEDS: GABAPENTIN 100 MG CAPSULE PO SCH (08:50)
[2021-02-18] MEDS ORDERED: POTASSIUM CHLORIDE 10% 40 MEQ/30 ML UDC PO ONE (09:00)
[2021-02-18] MEDS: D5%-LACTATED RINGERS 1,000 ML IV SCH ×2 (09:00→18:05)
[2021-02-18 12:12] VITALS: BP 94/60
[2021-02-18] MEDS ORDERED: HYDROcodone/APAP 5/325 TABLET ONE (17:00)
[2021-02-18 17:03] VITALS: BP 108/73
[2021-02-18 19:08] VITALS: BP 121/82
[2021-02-18] MEDS: MIRTAZAPINE 30 MG TAB.RAPDIS PO SCH (21:14)
[2021-02-18] MEDS: SIMETHICONE 80 MG CHEW TAB PO PRN (21:14)
[2021-02-18] MEDS: NICOTINE 21 MG/24 HR PATCH.TD24 TD SCH (22:07)
[2021-02-19 01:11] VITALS: BP 131/88
[2021-02-19 04:54] LABS: BASOPHILS % (AUTO) 1 % (0-1); EOSINOPHILS % (AUTO) 3 % (1-7); LYMPHOCYTES % (AUTO) 13 % (22-44); MEAN CORPUSCULAR HEMOGLOBIN 29.8 pg (27.5-34.5); MEAN CORPUSCULAR HGB CONC 34.5 g/dL (33.2-36.2); MEAN PLATELET VOLUME 6.7 fL (7.4-10.4); MONOCYTES % (AUTO) 12 % (2-9); NEUTROPHILS % (AUTO) 72 % (42-75); PLATELET COUNT 845 x10^3/uL (130-400); RED BLOOD COUNT 2.58 x10^6/uL (4.38-5.82); RED CELL DISTRIBUTION WIDTH 15.4 % (9.4-14.8)
[2021-02-19 04:58] LABS: ALBUMIN 1.5 g/dL (3.4-5.0); ANION GAP 6 mmol/L (5-15); CALCIUM 8.1 mg/dL (8.5-10.1); CHLORIDE 101 mmol/L (98-107); CREATININE 0.46 mg/dL (0.7-1.3)
[2021-02-19 05:25] VITALS: BP 150/90
[2021-02-19] MEDS: METOPROLOL TARTRATE 25 MG TAB PO SCH ×2 (05:27→17:49)
[2021-02-19] MEDS: PIPERACILLIN/TAZO 3.375 GM in DEXTROSE 5% 50 ML IVPB SCH ×3 (05:27→22:42)
[2021-02-19 07:29] VITALS: BP 117/80
[2021-02-19] MEDS: TIZANIDINE 2MG TABLET PO SCH (08:08)
[2021-02-19] MEDS: SUCRALFATE 1 GM/10 ML UDC PO SCH ×4 (08:08→23:14)
[2021-02-19] MEDS: hydrOXyzine 50MG TABLET PO SCH ×2 (08:09→22:44)
[2021-02-19] MEDS: ESCITALOPRAM 10MG TABLET PO SCH (08:09)
[2021-02-19] MEDS: PANTOPRAZOLE 40 MG IV IVPush SCH ×2 (08:09→22:42)
[2021-02-19] MEDS: GABAPENTIN 100 MG CAPSULE PO SCH (08:09)
[2021-02-19] MEDS: D5%-LACTATED RINGERS 1,000 ML IV SCH ×2 (08:09→17:49)
[2021-02-19] MEDS: HYDROmorphone 2 MG/ML, 1ML IVPush PRN (08:09)
[2021-02-19] MEDS: TAMSULOSIN 0.4 MG CAP.ER.24H PO SCH (08:09)
[2021-02-19] MEDS ORDERED: HYDROcodone/APAP 5/325 TABLET ONE ×2 (10:46→18:33)
[2021-02-19 12:45] VITALS: BP 118/83
[2021-02-19] MEDS: HYDROmorphone 1 MG/ML, 1ML INJ IVPush PRN ×2 (13:15→22:43)
[2021-02-19] MEDS: LOPERAMIDE 2 MG CAPSULE PO SCH ×2 (15:13→22:43)
[2021-02-19 18:32] VITALS: BP 121/80
[2021-02-19] MEDS: NICOTINE 21 MG/24 HR PATCH.TD24 TD SCH (22:42)
[2021-02-19] MEDS: MIRTAZAPINE 30 MG TAB.RAPDIS PO SCH (22:43)
[2021-02-19] MEDS: SIMETHICONE 80 MG CHEW TAB PO PRN (23:14)
[2021-02-20 01:35] VITALS: BP 113/74
[2021-02-20] MEDS: D5%-LACTATED RINGERS 1,000 ML IV SCH ×2 (03:44→13:30)
[2021-02-20 03:59] VITALS: BP 131/86
[2021-02-20 05:27] LABS: BASOPHILS % (AUTO) 1 % (0-1); EOSINOPHILS % (AUTO) 3 % (1-7); LYMPHOCYTES % (AUTO) 10 % (22-44); MEAN CORPUSCULAR HEMOGLOBIN 29.1 pg (27.5-34.5); MEAN CORPUSCULAR HGB CONC 33.4 g/dL (33.2-36.2); MEAN PLATELET VOLUME 6.7 fL (7.4-10.4); MONOCYTES % (AUTO) 10 % (2-9); NEUTROPHILS % (AUTO) 77 % (42-75); PLATELET COUNT 821 x10^3/uL (130-400); RED BLOOD COUNT 2.67 x10^6/uL (4.38-5.82); RED CELL DISTRIBUTION WIDTH 15.4 % (9.4-14.8)
[2021-02-20 05:34] LABS: ALBUMIN 1.4 g/dL (3.4-5.0); ANION GAP 4 mmol/L (5-15); CALCIUM 7.9 mg/dL (8.5-10.1); CHLORIDE 104 mmol/L (98-107); CREATININE 0.53 mg/dL (0.7-1.3)
[2021-02-20 06:08] VITALS: BP 126/80
[2021-02-20] MEDS: METOPROLOL TARTRATE 25 MG TAB PO SCH (06:10)
[2021-02-20] MEDS: SUCRALFATE 1 GM/10 ML UDC PO SCH ×3 (06:10→15:12)
[2021-02-20] MEDS: PIPERACILLIN/TAZO 3.375 GM in DEXTROSE 5% 50 ML IVPB SCH ×2 (06:10→13:46)
[2021-02-20 08:06] VITALS: BP 129/84
[2021-02-20] MEDS ORDERED: HYDROcodone/APAP 5/325 TABLET ONE ×2 (09:05→13:45)
[2021-02-20] MEDS: TIZANIDINE 2MG TABLET PO SCH (09:06)
[2021-02-20] MEDS: ESCITALOPRAM 10MG TABLET PO SCH (09:06)
[2021-02-20] MEDS: LOPERAMIDE 2 MG CAPSULE PO SCH (09:06)
[2021-02-20] MEDS: TAMSULOSIN 0.4 MG CAP.ER.24H PO SCH (09:06)
[2021-02-20] MEDS: GABAPENTIN 100 MG CAPSULE PO SCH (09:06)
[2021-02-20] MEDS: hydrOXyzine 50MG TABLET PO SCH (09:06)
[2021-02-20] MEDS: PANTOPRAZOLE 40 MG IV IVPush SCH (09:07)
[2021-02-20] MEDS: SIMETHICONE 80 MG CHEW TAB PO PRN (09:32)
[2021-02-20] MEDS ORDERED: HYDR-3241 PO (11:50)
[2021-02-20] MEDS ORDERED: LOPE2CAP PO (11:50)
[2021-02-20] MEDS ORDERED: HYDR50TA99 PO (11:50)
[2021-02-20] MEDS ORDERED: MIRT30TA97 PO (11:50)
[2021-02-20] MEDS ORDERED: METO25TA35 PO (11:50)
[2021-02-20] MEDS ORDERED: PIPE3.375 IV (11:50)
[2021-02-20] MEDS ORDERED: NICO-587 TD (11:50)
[2021-02-20] MEDS ORDERED: SUCR1TAB33 PO (11:54)
[2021-02-20 15:13] VITALS: BP 101/68
== END 2021-02-20 17:03 | DRG 326 ==
LOC: ED 17:14 → EDIP 19:46 → 4NW 20:36 → CCU 02-14 20:50 → 4WST 02-15 19:55
PROVIDERS: ADMIT Internal Medicine; ATTEND Hospitalist
PROC: 0D758ZZ Dilation of Esophagus, Via Natural or Artificial Opening Endoscopic (ICD-10-PCS; 2021-02-14)
PROC: 0DNU0ZZ Release Omentum, Open Approach (ICD-10-PCS; 2021-02-14)
PROC: 3E1M38Z Irrigation of Peritoneal Cavity using Irrigating Substance, Percutaneous Approach (ICD-10-PCS; principal; 2021-02-14 12:00)
PROC: 0DH60UZ Insertion of Feeding Device into Stomach, Open Approach (ICD-10-PCS; 2021-02-16)
DX: K94.22 Gastrostomy infection (principal); A41.9 Sepsis, unspecified organism; E43 Unspecified severe protein-calorie malnutrition; K65.1 Peritoneal abscess; E87.1 Hypo-osmolality and hyponatremia; K63.0 Abscess of intestine; N17.9 Acute kidney failure, unspecified; R18.8 Other ascites; Z68.1 Body mass index [BMI] 19.9 or less, adult; Z20.822 Contact with and (suspected) exposure to COVID-19; D64.9 Anemia, unspecified; Y83.8 Other surgical procedures as the cause of abnormal reaction of the patient, or of later complication, without mention of misadventure at the time of the procedure; Y73.8 Miscellaneous gastroenterology and urology devices associated with adverse incidents, not elsewhere classified; D47.3 Essential (hemorrhagic) thrombocythemia; E86.0 Dehydration; E86.1 Hypovolemia; E87.8 Other disorders of electrolyte and fluid balance, not elsewhere classified; F12.90 Cannabis use, unspecified, uncomplicated; F17.210 Nicotine dependence, cigarettes, uncomplicated; D72.829 Elevated white blood cell count, unspecified; F32.9 Major depressive disorder, single episode, unspecified; G62.9 Polyneuropathy, unspecified; I10 Essential (primary) hypertension; K21.00 Gastro-esophageal reflux disease with esophagitis, without bleeding; K22.2 Esophageal obstruction; K40.90 Unilateral inguinal hernia, without obstruction or gangrene, not specified as recurrent; K59.03 Drug induced constipation; N40.1 Benign prostatic hyperplasia with lower urinary tract symptoms; R33.8 Other retention of urine; T40.605A Adverse effect of unspecified narcotics, initial encounter; Z85.01 Personal history of malignant neoplasm of esophagus; Z79.899 Other long term (current) drug therapy; Z79.01 Long term (current) use of anticoagulants; Z79.891 Long term (current) use of opiate analgesic
CPT/HCPCS: 36415; 74018; 84145; 96361; 96365; 96375; 99285; J7121; 74177; 80048; 80053; 82040; 82728; 83540; 83550; 83605; 83690; 83735; 84100; 85025; 86850; 86900; 86923; 87040; 87081; 87635; B4087; C1729; G0378; J0690; J1170; J1885; J2405; J2543; J2704; J2710; J3010; Q9967; C1765; C9113; J0330; J0360; J2270; J7030; J7040; J7120; P9016

== ENCOUNTER 2021-02-26 16:11 | Inpatient (IN) | payer MEDICAID ==
[~2021-02-26] VITALS: Ht 182.9 cm; Wt 62.1 kg
[~2021-02-26 16:11] MED LIST changes: +HYDR-3241 PO; +LOPE2CAP PO; +METO25TA35 PO; +MIRT30TA97 PO; +PIPE3.375 IV
[2021-02-26] MEDS ORDERED: ONDANSETRON 2MG/ML, 2ML ONE (16:42)
[2021-02-26] MEDS ORDERED: MORPHINE SULFATE 4 MG/ML, 1ML ONE ×4 (16:42→20:47)
[2021-02-26] MEDS: MORPHINE SULFATE 4 MG/ML, 1ML IVPush PRN ×4 (16:45→20:49)
[2021-02-26] MEDS ORDERED: SODIUM CHLORIDE FLUSH 10ML SYR IVF ONE (17:00)
[2021-02-26] MEDS ORDERED: SODIUM CHLORIDE 0.9% 1,000ML IVBOLUS ONE (17:00)
[2021-02-26] MEDS ORDERED: ONDANSETRON 2MG/ML, 2ML IVPush ONE (17:00)
[2021-02-26 17:13] LABS: MICROSCOPIC AUTO
[2021-02-26 17:15] LABS: MEAN CORPUSCULAR HEMOGLOBIN 28.1 pg (27.5-34.5); MEAN CORPUSCULAR HGB CONC 33.5 g/dL (33.2-36.2); MEAN PLATELET VOLUME 6.6 fL (7.4-10.4); PLATELET COUNT 986 x10^3/uL (130-400); RED CELL DISTRIBUTION WIDTH 17.4 % (9.4-14.8)
[2021-02-26 17:26] LABS: ALANINE AMINOTRANSFERASE 12 U/L (12-78); ALBUMIN 1.3 g/dL (3.4-5.0); ANION GAP 6 mmol/L (5-15); CALCIUM 7.7 mg/dL (8.5-10.1); CHLORIDE 95 mmol/L (98-107); CREATININE 0.33 mg/dL (0.7-1.3)
[2021-02-26 17:29] LABS: ALKALINE PHOSPHATASE 69 U/L (45-117); BILIRUBIN,TOTAL 0.4 mg/dL (0.2-1.0); TOTAL PROTEIN 5.8 g/dL (6.4-8.2)
--- NOTE | 2021-02-26 18:00 | NUR ---
Pt from SNF after being d/c' s/p abd surgery for GT replacement. Pt was d/c'd to SNF on . Ileus reported to be seen on CT from yesterday. Pt has bloating, c/o gas, and belly is exteremly tender. Prior to hospital admission pt lived at home and ambulated independently. Pt presents A&O.
[2021-02-26 18:04] LABS: BAND#(MANUAL) 0.42 x10^3/uL; BANDS%(MANUAL) 4 % (0-7); LYMPH#(MANUAL) 0.62 x10^3/uL (1-3.4); LYMPHS% (MANUAL) 6 % (22-44); MONOS#(MANUAL) 0.83 x10^3/uL (0.3-2.7); MONOS% (MANUAL) 8 % (2-9); REACTIVE LYMPHS % (MANUAL) 1 % (0-0); SEG#(MANUAL) 8.42 x10^3/uL (1.8-6.8); SEGS% (MANUAL) 81 % (42-75)
[2021-02-26 18:05] LABS: <PLATELET ESTIMATE> INCREASED; ANISOCYTOSIS 1+; SMALL PLATELETS 1+
--- NOTE | 2021-02-26 18:06 | NUR ---
Pt to imaging.
[2021-02-26] MEDS ORDERED: OMNIPAQUE 350 MG/ML, 100ML BOTTLE ONE (18:29)
--- NOTE | 2021-02-26 18:54 | NUR ---
Bedside report to GRANT Reese. To assume full care.
[2021-02-26] MEDS ORDERED: SODIUM CHLORIDE 0.9% 1,000 ML IV STA (19:27)
[2021-02-26] MEDS ORDERED: PIPERACILLIN/TAZO 3.375 GM in DEXTROSE 5% 50 ML IVPB ONE (19:30)
[2021-02-26] MEDS ORDERED: POTASSIUM CHLORIDE 40 MEQ in SODIUM CHLORIDE 0.9% 500 ML IV ONE (19:30)
--- NOTE | 2021-02-26 19:30 | NUR ---
abx hung after blood cultures
[2021-02-26] MEDS ORDERED: SODIUM CHLORIDE 0.9% 1,000 ML IV SCH (20:00)
[2021-02-26 20:17] VITALS: BP 114/77
--- NOTE | 2021-02-26 20:18 | NUR ---
blood started at this time, apprentice embalmer at bedside for eval for admit.
[2021-02-26] MEDS ORDERED: VANCOMYCIN PER PHARMACY MC PRN (20:30)
[2021-02-26 20:33] VITALS: BP 113/75
--- NOTE | 2021-02-26 20:45 | NUR ---
report given to ac he
[2021-02-26 20:53] VITALS: BP 112/76
--- NOTE | 2021-02-26 21:05 | NUR ---
rt piv infultrated. new iv placed. fluids running during transport
[2021-02-26 21:23] LABS: INTERNATIONAL NORMALIZED RATIO 1.02 (0.93-1.1); PROTHROMBIN TIME 10.9 Seconds (9.6-11.5)
[2021-02-26 21:47] VITALS: BP 124/84
[2021-02-26 21:48] VITALS: BP 124/84
[2021-02-26] MEDS ORDERED: VANCOMYCIN 1,500 MG in SODIUM CHLORIDE 0.9% 250 ML IV ONE (22:00)
[2021-02-26] MEDS ORDERED: PHARMACOKINETIC MONITORING MC PRN (22:00)
[2021-02-26] MEDS ORDERED: PHARMACOKINETIC CONSULTATION MC ONE (22:00)
[2021-02-26] MEDS: SUCRALFATE 1 GM TABLET PO SCH (22:20)
[2021-02-26] MEDS: MIRTAZAPINE 30 MG TAB.RAPDIS PO SCH (22:20)
[2021-02-26] MEDS: morphine SULFATE 10 MG/ML, 1ML IVPush PRN (22:21)
[2021-02-27] MEDS: NS + 20MEQ KCL 1,000 ML IV SCH ×2 (00:02→18:02)
[2021-02-27 01:24] VITALS: BP 113/72
[2021-02-27] MEDS: PIPERACILLIN/TAZO 3.375 GM in DEXTROSE 5% 50 ML IV SCH ×4 (01:47→22:32)
[2021-02-27] MEDS: morphine SULFATE 10 MG/ML, 1ML IVPush PRN ×2 (01:47→05:41)
[2021-02-27 05:00] LABS: BASOPHILS % (AUTO) 0 % (0-1); EOSINOPHILS % (AUTO) 1 % (1-7); LYMPHOCYTES % (AUTO) 6 % (22-44); MEAN CORPUSCULAR HEMOGLOBIN 29.2 pg (27.5-34.5); MEAN CORPUSCULAR HGB CONC 33.9 g/dL (33.2-36.2); MEAN PLATELET VOLUME 6.9 fL (7.4-10.4); MONOCYTES % (AUTO) 11 % (2-9); NEUTROPHILS % (AUTO) 82 % (42-75); PLATELET COUNT 923 x10^3/uL (130-400); RED BLOOD COUNT 2.73 x10^6/uL (4.38-5.82); RED CELL DISTRIBUTION WIDTH 17.4 % (9.4-14.8)
[2021-02-27 05:05] LABS: ANION GAP 7 mmol/L (5-15); CALCIUM 7.6 mg/dL (8.5-10.1); CHLORIDE 98 mmol/L (98-107); CREATININE 0.28 mg/dL (0.7-1.3)
[2021-02-27] MEDS: OMEPRAZOLE 20 MG CAPSULE.DR PO SCH ×2 (05:21→16:33)
[2021-02-27] MEDS: SUCRALFATE 1 GM TABLET PO SCH ×4 (05:21→20:46)
[2021-02-27] MEDS: METOPROLOL TARTRATE 25 MG TAB PO SCH ×2 (05:21→17:59)
[2021-02-27 08:09] VITALS: BP 124/80
[2021-02-27] MEDS ORDERED: HYDROcodone/APAP 10/325 MG TABLET PO PRN (08:30)
[2021-02-27] MEDS: FENTANYL PF 100 MCG/2ML IVPush PRN ×6 (08:41→21:41)
[2021-02-27 09:00] LABS: % IRON SATURATION 12 % (20-55); IRON LEVEL 12 mcg/dL (65-175); TOTAL IRON BINDING CAPACITY 102 mcg/dL (250-450)
[2021-02-27] MEDS: TAMSULOSIN 0.4 MG CAP.ER.24H PO SCH (09:00)
[2021-02-27] MEDS ORDERED: MAGNESIUM SULFATE 3 GM in SODIUM CHLORIDE 0.9% 100 ML IV ONE (09:00)
[2021-02-27] MEDS: ESCITALOPRAM 10MG TABLET PO SCH (09:00)
[2021-02-27] MEDS: GABAPENTIN 100 MG CAPSULE PO SCH (09:00)
[2021-02-27 12:11] VITALS: BP 121/78
[2021-02-27] MEDS: VANCOMYCIN 1,200 MG in SODIUM CHLORIDE 0.9% 250 ML IV SCH ×2 (12:40→23:32)
[2021-02-27] MEDS ORDERED: LIDOCAINE 1%, 20ML ONE (13:13)
[2021-02-27] MEDS ORDERED: NALOXONE 1 MG/ML, 2ML ONE (13:51)
[2021-02-27] MEDS ORDERED: FLUMAZENIL 0.1 MG/1 ML, 5ML ONE (13:51)
[2021-02-27] MEDS ORDERED: FENTANYL PF 100 MCG/2ML ONE (13:51)
[2021-02-27] MEDS ORDERED: MIDAZOLAM 1 MG/ML, 5ML ONE (13:51)
[2021-02-27] MEDS ORDERED: IRON DEXTRAN COMPLEX 25 MG in SODIUM CHLORIDE 0.9% 50 ML IV ONE (15:00)
[2021-02-27] MEDS ORDERED: IRON DEXTRAN COMPLEX 1,450 MG in SODIUM CHLORIDE 0.9% 250 ML IV ONE (16:00)
[2021-02-27] MEDS ORDERED: EPINEPHRINE 1 MG/ML, 1ML SQ PRN (17:00)
[2021-02-27 18:54] VITALS: BP 105/72
[2021-02-27] MEDS: SIMETHICONE 80 MG CHEW TAB PO SCH (20:47)
[2021-02-27] MEDS: MIRTAZAPINE 30 MG TAB.RAPDIS PO SCH (20:47)
[2021-02-27 23:15] VITALS: BP 116/80
[2021-02-28 03:07] VITALS: BP 124/85
[2021-02-28 04:45] LABS: BASOPHILS % (AUTO) 0 % (0-1); EOSINOPHILS % (AUTO) 1 % (1-7); LYMPHOCYTES % (AUTO) 12 % (22-44); MEAN CORPUSCULAR HEMOGLOBIN 29.1 pg (27.5-34.5); MEAN CORPUSCULAR HGB CONC 34.4 g/dL (33.2-36.2); MEAN PLATELET VOLUME 6.5 fL (7.4-10.4); MONOCYTES % (AUTO) 12 % (2-9); NEUTROPHILS % (AUTO) 75 % (42-75); PLATELET COUNT 896 x10^3/uL (130-400); RED BLOOD COUNT 2.69 x10^6/uL (4.38-5.82); RED CELL DISTRIBUTION WIDTH 17.2 % (9.4-14.8)
[2021-02-28] MEDS: PIPERACILLIN/TAZO 3.375 GM in DEXTROSE 5% 50 ML IV SCH ×4 (04:47→22:43)
[2021-02-28 05:01] LABS: ALBUMIN 1.1 g/dL (3.4-5.0); ANION GAP 4 mmol/L (5-15); CALCIUM 7.2 mg/dL (8.5-10.1); CHLORIDE 101 mmol/L (98-107)
[2021-02-28 05:05] LABS: ALKALINE PHOSPHATASE 60 U/L (45-117); BILIRUBIN,TOTAL 0.3 mg/dL (0.2-1.0); CREATININE 0.28 mg/dL (0.7-1.3); TOTAL PROTEIN 4.8 g/dL (6.4-8.2)
[2021-02-28 05:29] LABS: ALANINE AMINOTRANSFERASE 16 U/L (12-78)
[2021-02-28] MEDS: SIMETHICONE 80 MG CHEW TAB PO SCH ×4 (06:06→21:17)
[2021-02-28] MEDS: SUCRALFATE 1 GM TABLET PO SCH ×4 (06:06→21:17)
[2021-02-28] MEDS: METOPROLOL TARTRATE 25 MG TAB PO SCH ×2 (06:06→17:46)
[2021-02-28] MEDS: NS + 20MEQ KCL 1,000 ML IV SCH (06:06)
[2021-02-28] MEDS: OMEPRAZOLE 20 MG CAPSULE.DR PO SCH ×2 (06:09→17:46)
[2021-02-28] MEDS ORDERED: POTASSIUM PHOSPHATE 22 MEQ in SODIUM CHLORIDE 0.9% 500 ML IV ONE (06:30)
[2021-02-28 07:20] VITALS: BP 132/88
[2021-02-28] MEDS: FENTANYL PF 100 MCG/2ML IVPush PRN ×4 (08:30→21:17)
[2021-02-28] MEDS: TAMSULOSIN 0.4 MG CAP.ER.24H PO SCH (11:00)
[2021-02-28] MEDS: ESCITALOPRAM 10MG TABLET PO SCH (11:00)
[2021-02-28] MEDS: GABAPENTIN 100 MG CAPSULE PO SCH (11:00)
[2021-02-28 12:33] VITALS: BP 118/85
[2021-02-28] MEDS: VANCOMYCIN 1,500 MG in SODIUM CHLORIDE 0.9% 250 ML IV SCH (13:21)
[2021-02-28] MEDS ORDERED: LIDOCAINE-MPF 1%, 5ML ONE (14:23)
[2021-02-28 17:48] VITALS: BP 116/80
[2021-02-28 20:35] VITALS: BP 111/71
[2021-02-28] MEDS: MIRTAZAPINE 30 MG TAB.RAPDIS PO SCH (21:17)
[2021-03-01] MEDS: FENTANYL PF 100 MCG/2ML IVPush PRN ×5 (00:52→17:53)
[2021-03-01 01:23] VITALS: BP 120/80
[2021-03-01] MEDS: VANCOMYCIN 1,500 MG in SODIUM CHLORIDE 0.9% 250 ML IV SCH ×2 (01:31→14:25)
[2021-03-01] MEDS: PIPERACILLIN/TAZO 3.375 GM in DEXTROSE 5% 50 ML IV SCH ×3 (04:11→20:41)
[2021-03-01] MEDS: SIMETHICONE 80 MG CHEW TAB PO SCH ×4 (06:09→20:41)
[2021-03-01] MEDS: METOPROLOL TARTRATE 25 MG TAB PO SCH ×2 (06:09→17:37)
[2021-03-01] MEDS: SUCRALFATE 1 GM TABLET PO SCH ×4 (06:09→20:41)
[2021-03-01] MEDS: OMEPRAZOLE 20 MG CAPSULE.DR PO SCH ×2 (06:13→17:52)
[2021-03-01 06:46] VITALS: BP 120/78
[2021-03-01 07:23] LABS: ANION GAP 4 mmol/L (5-15); CALCIUM 7.7 mg/dL (8.5-10.1); CHLORIDE 101 mmol/L (98-107); CREATININE 0.39 mg/dL (0.7-1.3)
[2021-03-01 07:26] LABS: BASOPHILS % (AUTO) 0 % (0-1); EOSINOPHILS % (AUTO) 2 % (1-7); LYMPHOCYTES % (AUTO) 11 % (22-44); MEAN CORPUSCULAR HEMOGLOBIN 28.1 pg (27.5-34.5); MEAN CORPUSCULAR HGB CONC 32.9 g/dL (33.2-36.2); MEAN PLATELET VOLUME 6.9 fL (7.4-10.4); MONOCYTES % (AUTO) 11 % (2-9); NEUTROPHILS % (AUTO) 76 % (42-75); PLATELET COUNT 983 x10^3/uL (130-400); RED CELL DISTRIBUTION WIDTH 17.6 % (9.4-14.8)
[2021-03-01] MEDS: TAMSULOSIN 0.4 MG CAP.ER.24H PO SCH (07:50)
[2021-03-01] MEDS: ESCITALOPRAM 10MG TABLET PO SCH (07:50)
[2021-03-01] MEDS: GABAPENTIN 100 MG CAPSULE PO SCH (07:50)
[2021-03-01] MEDS ORDERED: POTASSIUM CHLORIDE 20 MEQ TAB.ER.PRT PO ONE (08:00)
[2021-03-01] MEDS: OXYcodone IR 5MG TABLET PO PRN ×3 (09:17→20:42)
[2021-03-01] MEDS ORDERED: PANCRELIPASE 24,000 CAPSULE.DR PO ONE (09:30)
[2021-03-01] MEDS ORDERED: LIDOCAINE GEL 2%, 5ML ONE (10:59)
[2021-03-01 13:00] VITALS: BP 99/66
[2021-03-01] MEDS: MIRTAZAPINE 30 MG TAB.RAPDIS PO SCH (20:42)
[2021-03-01 20:43] VITALS: BP 121/83
[2021-03-02] MEDS: FENTANYL PF 100 MCG/2ML IVPush PRN ×3 (00:22→15:13)
[2021-03-02 03:15] VITALS: BP 122/85
[2021-03-02] MEDS: VANCOMYCIN 1,500 MG in SODIUM CHLORIDE 0.9% 250 ML IV SCH (03:15)
[2021-03-02] MEDS: OXYcodone IR 5MG TABLET PO PRN ×5 (03:28→21:25)
[2021-03-02] MEDS: PIPERACILLIN/TAZO 3.375 GM in DEXTROSE 5% 50 ML IV SCH ×2 (05:24→08:32)
[2021-03-02 06:03] VITALS: BP 114/76
[2021-03-02] MEDS: SIMETHICONE 80 MG CHEW TAB PO SCH ×4 (06:04→21:24)
[2021-03-02] MEDS: OMEPRAZOLE 20 MG CAPSULE.DR PO SCH ×2 (06:04→17:20)
[2021-03-02] MEDS: SUCRALFATE 1 GM TABLET PO SCH ×4 (06:04→21:24)
[2021-03-02] MEDS: METOPROLOL TARTRATE 25 MG TAB PO SCH ×2 (06:04→17:21)
[2021-03-02 06:30] LABS: BASOPHILS % (AUTO) 0 % (0-1); EOSINOPHILS % (AUTO) 2 % (1-7); LYMPHOCYTES % (AUTO) 12 % (22-44); MEAN CORPUSCULAR HEMOGLOBIN 28.2 pg (27.5-34.5); MONOCYTES % (AUTO) 12 % (2-9); NEUTROPHILS % (AUTO) 74 % (42-75); PLATELET COUNT 983 x10^3/uL (130-400); RED BLOOD COUNT 2.74 x10^6/uL (4.38-5.82); RED CELL DISTRIBUTION WIDTH 17.6 % (9.4-14.8)
[2021-03-02 08:25] VITALS: BP 113/73
[2021-03-02] MEDS: TAMSULOSIN 0.4 MG CAP.ER.24H PO SCH (08:33)
[2021-03-02] MEDS: GABAPENTIN 100 MG CAPSULE PO SCH (08:33)
[2021-03-02] MEDS: ESCITALOPRAM 10MG TABLET PO SCH (08:33)
[2021-03-02] MEDS: AMPICILLIN/SULBACTAM 3 GM in SODIUM CHLORIDE 0.9% 100 ML IV SCH ×2 (13:20→21:24)
[2021-03-02 16:28] VITALS: BP 109/73
[2021-03-02] MEDS: METOCLOPRAMIDE 5 MG/ML, 2ML IVPush PRN (18:21)
[2021-03-02] MEDS: MAALOX/HYOSCYAMINE/LIDOCAINE 45 ML BTL PO PRN (20:12)
[2021-03-02 20:14] VITALS: BP 112/74
[2021-03-02] MEDS: MIRTAZAPINE 30 MG TAB.RAPDIS PO SCH (21:25)
[2021-03-03 00:57] VITALS: BP 111/72
[2021-03-03] MEDS: OXYcodone IR 5MG TABLET PO PRN ×5 (01:25→21:26)
[2021-03-03] MEDS: AMPICILLIN/SULBACTAM 3 GM in SODIUM CHLORIDE 0.9% 100 ML IV SCH (03:57)
[2021-03-03] MEDS: SUCRALFATE 1 GM TABLET PO SCH ×4 (05:16→21:25)
[2021-03-03] MEDS: METOPROLOL TARTRATE 25 MG TAB PO SCH ×2 (05:16→17:50)
[2021-03-03] MEDS: OMEPRAZOLE 20 MG CAPSULE.DR PO SCH ×2 (05:16→15:26)
[2021-03-03 05:31] LABS: BASOPHILS % (AUTO) 0 % (0-1); EOSINOPHILS % (AUTO) 1 % (1-7); LYMPHOCYTES % (AUTO) 10 % (22-44); MEAN CORPUSCULAR HEMOGLOBIN 28.2 pg (27.5-34.5); MEAN PLATELET VOLUME 6.9 fL (7.4-10.4); MONOCYTES % (AUTO) 10 % (2-9); NEUTROPHILS % (AUTO) 79 % (42-75); PLATELET COUNT 935 x10^3/uL (130-400); RED BLOOD COUNT 2.67 x10^6/uL (4.38-5.82); RED CELL DISTRIBUTION WIDTH 18.1 % (9.4-14.8)
[2021-03-03 05:34] LABS: ANION GAP 3 mmol/L (5-15); CALCIUM 7.9 mg/dL (8.5-10.1); CHLORIDE 98 mmol/L (98-107)
[2021-03-03 05:42] LABS: CREATININE 0.49 mg/dL (0.7-1.3)
[2021-03-03] MEDS ORDERED: MAGNESIUM SULFATE PMX 2GM/50ML 50 ML IV ONE (06:30)
[2021-03-03 07:53] VITALS: BP 108/73
[2021-03-03] MEDS: GABAPENTIN 100 MG CAPSULE PO SCH (09:01)
[2021-03-03] MEDS: ESCITALOPRAM 10MG TABLET PO SCH (09:01)
[2021-03-03] MEDS: TAMSULOSIN 0.4 MG CAP.ER.24H PO SCH (09:01)
[2021-03-03] MEDS: SIMETHICONE 80 MG CHEW TAB PO SCH ×4 (09:01→21:25)
[2021-03-03] MEDS: METHYLNALTREXONE 12 MG/0.6 ML SYR SQ SCH (09:02)
[2021-03-03] MEDS: PIPERACILLIN/TAZO 3.375 GM in DEXTROSE 5% 50 ML IV SCH ×3 (11:59→23:48)
[2021-03-03 14:00] VITALS: BP 108/76
[2021-03-03 19:51] VITALS: BP 112/75
[2021-03-03] MEDS: MAALOX/HYOSCYAMINE/LIDOCAINE 45 ML BTL PO PRN ×2 (21:25→23:48)
[2021-03-03] MEDS: MIRTAZAPINE 30 MG TAB.RAPDIS PO SCH (21:25)
[2021-03-04 01:42] VITALS: BP 95/60
[2021-03-04] MEDS: PIPERACILLIN/TAZO 3.375 GM in DEXTROSE 5% 50 ML IV SCH ×4 (05:21→23:34)
[2021-03-04] MEDS: SUCRALFATE 1 GM TABLET PO SCH ×4 (05:23→20:19)
[2021-03-04] MEDS: OMEPRAZOLE 20 MG CAPSULE.DR PO SCH ×2 (05:23→16:56)
[2021-03-04] MEDS: OXYcodone IR 5MG TABLET PO PRN ×4 (05:25→20:19)
[2021-03-04] MEDS: METOPROLOL TARTRATE 25 MG TAB PO SCH ×2 (05:32→16:56)
[2021-03-04 06:02] LABS: BASOPHILS % (AUTO) 0 % (0-1); EOSINOPHILS % (AUTO) 1 % (1-7); LYMPHOCYTES % (AUTO) 6 % (22-44); MEAN CORPUSCULAR HEMOGLOBIN 28.6 pg (27.5-34.5); MEAN CORPUSCULAR HGB CONC 33.2 g/dL (33.2-36.2); MONOCYTES % (AUTO) 9 % (2-9); NEUTROPHILS % (AUTO) 83 % (42-75); PLATELET COUNT 989 x10^3/uL (130-400); RED BLOOD COUNT 2.69 x10^6/uL (4.38-5.82); RED CELL DISTRIBUTION WIDTH 17.7 % (9.4-14.8)
[2021-03-04 07:40] VITALS: BP 96/63
[2021-03-04] MEDS: SIMETHICONE 80 MG CHEW TAB PO SCH ×4 (08:19→20:19)
[2021-03-04] MEDS: ESCITALOPRAM 10MG TABLET PO SCH (08:19)
[2021-03-04] MEDS: TAMSULOSIN 0.4 MG CAP.ER.24H PO SCH (08:20)
[2021-03-04] MEDS: GABAPENTIN 100 MG CAPSULE PO SCH (08:20)
[2021-03-04] MEDS: ALBUMIN HUMAN 25% 100 ML IV SCH ×2 (11:17→16:57)
[2021-03-04 14:13] VITALS: BP 99/64
[2021-03-04] MEDS: ONDANSETRON 2MG/ML, 2ML IVPush PRN (18:04)
[2021-03-04 18:33] VITALS: BP 99/64
[2021-03-04] MEDS: MIRTAZAPINE 30 MG TAB.RAPDIS PO SCH (20:19)
[2021-03-05] MEDS: OXYcodone IR 5MG TABLET PO PRN ×6 (00:16→22:54)
[2021-03-05 01:07] VITALS: BP 96/58
[2021-03-05] MEDS: ALBUMIN HUMAN 25% 100 ML IV SCH ×3 (01:22→16:57)
[2021-03-05] MEDS: ONDANSETRON 2MG/ML, 2ML IVPush PRN ×2 (04:57→22:59)
[2021-03-05 04:59] LABS: BASOPHILS % (AUTO) 0 % (0-1); EOSINOPHILS % (AUTO) 1 % (1-7); LYMPHOCYTES % (AUTO) 5 % (22-44); MEAN CORPUSCULAR HEMOGLOBIN 28.1 pg (27.5-34.5); MEAN CORPUSCULAR HGB CONC 32.9 g/dL (33.2-36.2); MONOCYTES % (AUTO) 9 % (2-9); NEUTROPHILS % (AUTO) 85 % (42-75); PLATELET COUNT 945 x10^3/uL (130-400); RED BLOOD COUNT 2.48 x10^6/uL (4.38-5.82); RED CELL DISTRIBUTION WIDTH 17.4 % (9.4-14.8)
[2021-03-05] MEDS ORDERED: OXYcodone IR 5MG TABLET PO ONE (05:00)
[2021-03-05 05:01] LABS: HCT (SEDRATE) 21.1 % (39.2-51.8)
[2021-03-05 05:11] LABS: ANION GAP 4 mmol/L (5-15); CALCIUM 8.7 mg/dL (8.5-10.1); CHLORIDE 96 mmol/L (98-107); CREATININE 0.69 mg/dL (0.7-1.3)
[2021-03-05] MEDS: METOPROLOL TARTRATE 25 MG TAB PO SCH ×2 (05:29→18:37)
[2021-03-05] MEDS: SUCRALFATE 1 GM TABLET PO SCH ×4 (05:29→22:54)
[2021-03-05] MEDS: PIPERACILLIN/TAZO 3.375 GM in DEXTROSE 5% 50 ML IV SCH (05:29)
[2021-03-05] MEDS: OMEPRAZOLE 20 MG CAPSULE.DR PO SCH ×2 (05:30→16:43)
[2021-03-05] MEDS: GABAPENTIN 100 MG CAPSULE PO SCH (08:52)
[2021-03-05] MEDS: ESCITALOPRAM 10MG TABLET PO SCH (08:52)
[2021-03-05] MEDS: TAMSULOSIN 0.4 MG CAP.ER.24H PO SCH ×2 (08:52→22:53)
[2021-03-05] MEDS: SIMETHICONE 80 MG CHEW TAB PO SCH ×4 (08:52→22:54)
[2021-03-05] MEDS: METHYLNALTREXONE 12 MG/0.6 ML SYR SQ SCH (08:52)
[2021-03-05] MEDS: PIPERACILLIN/TAZO 4.5 GM in DEXTROSE 5% 100 ML IVPB SCH ×2 (12:02→18:37)
[2021-03-05 13:33] VITALS: BP 95/62
[2021-03-05 13:39] VITALS: BP 95/62
[2021-03-05 13:56] VITALS: BP 93/56
[2021-03-05 15:31] VITALS: BP 94/60
[2021-03-05 19:33] VITALS: BP 106/69
[2021-03-05] MEDS: MIRTAZAPINE 30 MG TAB.RAPDIS PO SCH (22:54)
[2021-03-06] MEDS: PIPERACILLIN/TAZO 4.5 GM in DEXTROSE 5% 100 ML IVPB SCH ×4 (01:16→20:58)
[2021-03-06] MEDS: ALBUMIN HUMAN 25% 100 ML IV SCH ×3 (01:40→18:26)
[2021-03-06 01:43] VITALS: BP 119/73
[2021-03-06 06:39] VITALS: BP 100/68
[2021-03-06] MEDS: METOPROLOL TARTRATE 25 MG TAB PO SCH ×2 (06:45→18:00)
[2021-03-06] MEDS: SUCRALFATE 1 GM TABLET PO SCH ×4 (06:45→20:57)
[2021-03-06] MEDS: OXYcodone IR 5MG TABLET PO PRN ×4 (06:51→19:15)
[2021-03-06] MEDS: SIMETHICONE 80 MG CHEW TAB PO SCH ×4 (06:55→20:57)
[2021-03-06] MEDS: ONDANSETRON 2MG/ML, 2ML IVPush PRN ×3 (07:03→19:15)
[2021-03-06 07:25] LABS: BASOPHILS % (AUTO) 1 % (0-1); EOSINOPHILS % (AUTO) 3 % (1-7); LYMPHOCYTES % (AUTO) 10 % (22-44); MEAN CORPUSCULAR HEMOGLOBIN 28.5 pg (27.5-34.5); MEAN CORPUSCULAR HGB CONC 33.1 g/dL (33.2-36.2); MEAN PLATELET VOLUME 7.1 fL (7.4-10.4); MONOCYTES % (AUTO) 11 % (2-9); NEUTROPHILS % (AUTO) 75 % (42-75); PLATELET COUNT 959 x10^3/uL (130-400); RED BLOOD COUNT 2.78 x10^6/uL (4.38-5.82); RED CELL DISTRIBUTION WIDTH 16.5 % (9.4-14.8)
[2021-03-06] MEDS: OMEPRAZOLE 20 MG CAPSULE.DR PO SCH ×2 (08:05→15:46)
[2021-03-06] MEDS: GABAPENTIN 100 MG CAPSULE PO SCH (08:05)
[2021-03-06] MEDS: ESCITALOPRAM 10MG TABLET PO SCH (08:05)
[2021-03-06] MEDS: ACETAMINOPHEN 325 MG TABLET PO PRN (10:08)
[2021-03-06 13:25] VITALS: BP 90/57
[2021-03-06 18:25] VITALS: BP 95/68
[2021-03-06 18:50] VITALS: BP 97/63
[2021-03-06] MEDS: MIRTAZAPINE 30 MG TAB.RAPDIS PO SCH (20:57)
[2021-03-06] MEDS: TAMSULOSIN 0.4 MG CAP.ER.24H PO SCH (20:57)
[2021-03-07 02:00] VITALS: BP 99/65
[2021-03-07] MEDS: PIPERACILLIN/TAZO 4.5 GM in DEXTROSE 5% 100 ML IVPB SCH ×4 (02:46→21:30)
[2021-03-07] MEDS: ALBUMIN HUMAN 25% 100 ML IV SCH ×3 (03:57→20:14)
[2021-03-07] MEDS: SUCRALFATE 1 GM TABLET PO SCH ×4 (05:30→20:11)
[2021-03-07] MEDS: METOPROLOL TARTRATE 25 MG TAB PO SCH ×2 (05:31→17:22)
[2021-03-07] MEDS: OMEPRAZOLE 20 MG CAPSULE.DR PO SCH ×2 (05:31→15:51)
[2021-03-07] MEDS: OXYcodone IR 5MG TABLET PO PRN ×4 (05:37→20:12)
[2021-03-07 07:14] VITALS: BP 109/75
[2021-03-07] MEDS: GABAPENTIN 100 MG CAPSULE PO SCH (07:59)
[2021-03-07] MEDS: ESCITALOPRAM 10MG TABLET PO SCH (07:59)
[2021-03-07] MEDS: METHYLNALTREXONE 12 MG/0.6 ML SYR SQ SCH (07:59)
[2021-03-07] MEDS: SIMETHICONE 80 MG CHEW TAB PO SCH ×4 (07:59→20:11)
[2021-03-07] MEDS ORDERED: POLYETHYLENE GLYCOL 17 GM PACKET NG PRN (10:00)
[2021-03-07] MEDS: ONDANSETRON 2MG/ML, 2ML IVPush PRN (11:51)
[2021-03-07 14:13] VITALS: BP 100/67
[2021-03-07 18:45] VITALS: BP 97/63
[2021-03-07] MEDS: MIRTAZAPINE 30 MG TAB.RAPDIS PO SCH (20:11)
[2021-03-07] MEDS: TAMSULOSIN 0.4 MG CAP.ER.24H PO SCH (20:14)
[2021-03-07] MEDS: SENNA/DOCUSATE TABLET PO SCH (20:15)
[2021-03-08 00:40] VITALS: BP 100/68
[2021-03-08] MEDS: ALBUMIN HUMAN 25% 100 ML IV SCH ×2 (02:59→17:46)
[2021-03-08] MEDS: PIPERACILLIN/TAZO 4.5 GM in DEXTROSE 5% 100 ML IVPB SCH ×3 (05:13→21:34)
[2021-03-08] MEDS: METOPROLOL TARTRATE 25 MG TAB PO SCH ×2 (06:00→18:00)
[2021-03-08] MEDS: SUCRALFATE 1 GM TABLET PO SCH ×4 (06:33→21:33)
[2021-03-08] MEDS: OMEPRAZOLE 20 MG CAPSULE.DR PO SCH ×2 (06:33→16:24)
[2021-03-08] MEDS: OXYcodone IR 5MG TABLET PO PRN ×4 (06:39→21:34)
[2021-03-08 06:47] LABS: BASOPHILS % (AUTO) 1 % (0-1); EOSINOPHILS % (AUTO) 2 % (1-7); LYMPHOCYTES % (AUTO) 11 % (22-44); MEAN CORPUSCULAR HEMOGLOBIN 28.4 pg (27.5-34.5); MEAN CORPUSCULAR HGB CONC 33.2 g/dL (33.2-36.2); MEAN PLATELET VOLUME 6.9 fL (7.4-10.4); MONOCYTES % (AUTO) 11 % (2-9); NEUTROPHILS % (AUTO) 75 % (42-75); PLATELET COUNT 944 x10^3/uL (130-400); RED BLOOD COUNT 2.77 x10^6/uL (4.38-5.82); RED CELL DISTRIBUTION WIDTH 17.8 % (9.4-14.8)
[2021-03-08 06:49] VITALS: BP 103/71
[2021-03-08 06:58] LABS: ALANINE AMINOTRANSFERASE 30 U/L (12-78); ALBUMIN 3.2 g/dL (3.4-5.0); ANION GAP 4 mmol/L (5-15); CALCIUM 8.5 mg/dL (8.5-10.1); CHLORIDE 100 mmol/L (98-107); CREATININE 0.66 mg/dL (0.7-1.3)
[2021-03-08 07:00] LABS: ALKALINE PHOSPHATASE 55 U/L (45-117); BILIRUBIN,TOTAL 0.3 mg/dL (0.2-1.0); TOTAL PROTEIN 6.5 g/dL (6.4-8.2)
[2021-03-08] MEDS: SIMETHICONE 80 MG CHEW TAB PO SCH ×4 (07:41→21:34)
[2021-03-08] MEDS: GABAPENTIN 100 MG CAPSULE PO SCH (09:39)
[2021-03-08] MEDS: ESCITALOPRAM 10MG TABLET PO SCH (09:40)
[2021-03-08] MEDS: SENNA/DOCUSATE TABLET PO SCH ×2 (09:40→21:00)
[2021-03-08] MEDS: ONDANSETRON 2MG/ML, 2ML IVPush PRN ×2 (09:50→19:29)
[2021-03-08 13:55] VITALS: BP 98/55
[2021-03-08 18:42] VITALS: BP 92/62
[2021-03-08] MEDS: TAMSULOSIN 0.4 MG CAP.ER.24H PO SCH (21:33)
[2021-03-08] MEDS: MIRTAZAPINE 30 MG TAB.RAPDIS PO SCH (21:34)
[2021-03-09 01:39] VITALS: BP 104/71
[2021-03-09] MEDS: ALBUMIN HUMAN 25% 100 ML IV SCH ×2 (02:11→10:04)
[2021-03-09] MEDS: PIPERACILLIN/TAZO 4.5 GM in DEXTROSE 5% 100 ML IVPB SCH ×4 (04:14→22:01)
[2021-03-09] MEDS ORDERED: METOPROLOL TARTRATE 25 MG TAB PO SCH (06:00)
[2021-03-09] MEDS: OMEPRAZOLE 20 MG CAPSULE.DR PO SCH ×2 (06:04→16:13)
[2021-03-09] MEDS: SUCRALFATE 1 GM TABLET PO SCH ×4 (06:04→21:00)
[2021-03-09] MEDS: SIMETHICONE 80 MG CHEW TAB PO SCH ×4 (06:04→21:00)
[2021-03-09] MEDS: OXYcodone IR 5MG TABLET PO PRN ×4 (06:10→21:12)
[2021-03-09] MEDS: SENNA/DOCUSATE TABLET PO SCH ×3 (07:43→21:01)
[2021-03-09] MEDS: GABAPENTIN 100 MG CAPSULE PO SCH (07:44)
[2021-03-09] MEDS: ESCITALOPRAM 10MG TABLET PO SCH (07:44)
[2021-03-09 09:15] VITALS: BP 97/64
[2021-03-09] MEDS: METHYLNALTREXONE 12 MG/0.6 ML SYR SQ SCH (10:04)
[2021-03-09] MEDS: ONDANSETRON 2MG/ML, 2ML IVPush PRN ×2 (11:06→21:12)
[2021-03-09 13:52] VITALS: BP 93/53
[2021-03-09] MEDS: TAMSULOSIN 0.4 MG CAP.ER.24H PO SCH (21:01)
[2021-03-09] MEDS: MIRTAZAPINE 30 MG TAB.RAPDIS PO SCH (21:01)
[2021-03-09 21:25] VITALS: BP 97/60
[2021-03-10 01:40] VITALS: BP 100/59
[2021-03-10] MEDS: PIPERACILLIN/TAZO 4.5 GM in DEXTROSE 5% 100 ML IVPB SCH ×4 (04:15→22:19)
[2021-03-10 04:32] LABS: BASOPHILS % (AUTO) 1 % (0-1); EOSINOPHILS % (AUTO) 2 % (1-7); LYMPHOCYTES % (AUTO) 12 % (22-44); MEAN CORPUSCULAR HEMOGLOBIN 28.2 pg (27.5-34.5); MEAN CORPUSCULAR HGB CONC 32.3 g/dL (33.2-36.2); MEAN PLATELET VOLUME 6.6 fL (7.4-10.4); MONOCYTES % (AUTO) 11 % (2-9); NEUTROPHILS % (AUTO) 74 % (42-75); PLATELET COUNT 901 x10^3/uL (130-400); RED BLOOD COUNT 2.97 x10^6/uL (4.38-5.82); RED CELL DISTRIBUTION WIDTH 17.7 % (9.4-14.8)
[2021-03-10 04:41] LABS: ANION GAP 5 mmol/L (5-15); CALCIUM 8.8 mg/dL (8.5-10.1); CHLORIDE 101 mmol/L (98-107); CREATININE 0.67 mg/dL (0.7-1.3)
[2021-03-10] MEDS: OXYcodone IR 5MG TABLET PO PRN ×4 (04:47→20:36)
[2021-03-10] MEDS: SUCRALFATE 1 GM TABLET PO SCH ×4 (05:55→20:36)
[2021-03-10] MEDS: OMEPRAZOLE 20 MG CAPSULE.DR PO SCH ×2 (05:58→16:48)
[2021-03-10 07:27] VITALS: BP 97/65
[2021-03-10] MEDS: SIMETHICONE 80 MG CHEW TAB PO SCH ×4 (08:31→20:36)
[2021-03-10] MEDS: ESCITALOPRAM 10MG TABLET PO SCH (08:31)
[2021-03-10] MEDS: GABAPENTIN 100 MG CAPSULE PO SCH (08:32)
[2021-03-10] MEDS: SENNA/DOCUSATE TABLET PO SCH ×2 (08:32→20:45)
[2021-03-10] MEDS: ONDANSETRON 2MG/ML, 2ML IVPush PRN ×2 (10:33→17:54)
[2021-03-10 13:13] VITALS: BP 98/63
[2021-03-10 18:29] VITALS: BP 103/66
[2021-03-10] MEDS: MIRTAZAPINE 30 MG TAB.RAPDIS PO SCH (20:35)
[2021-03-10] MEDS: ACETAMINOPHEN 325 MG TABLET PO PRN (20:35)
[2021-03-10] MEDS: TAMSULOSIN 0.4 MG CAP.ER.24H PO SCH (20:41)
[2021-03-11 00:37] VITALS: BP 104/71
[2021-03-11] MEDS: OXYcodone IR 5MG TABLET PO PRN ×5 (00:42→20:35)
[2021-03-11] MEDS: ONDANSETRON 2MG/ML, 2ML IVPush PRN ×3 (00:42→17:25)
[2021-03-11 03:36] LABS: BASOPHILS % (AUTO) 1 % (0-1); EOSINOPHILS % (AUTO) 2 % (1-7); HCT (SEDRATE) 24.7 % (39.2-51.8); LYMPHOCYTES % (AUTO) 13 % (22-44); MEAN CORPUSCULAR HEMOGLOBIN 28.2 pg (27.5-34.5); MEAN CORPUSCULAR HGB CONC 32.9 g/dL (33.2-36.2); MEAN PLATELET VOLUME 6.7 fL (7.4-10.4); MONOCYTES % (AUTO) 11 % (2-9); NEUTROPHILS % (AUTO) 74 % (42-75); PLATELET COUNT 878 x10^3/uL (130-400); RED BLOOD COUNT 2.85 x10^6/uL (4.38-5.82); RED CELL DISTRIBUTION WIDTH 17.6 % (9.4-14.8)
[2021-03-11 03:46] LABS: ALANINE AMINOTRANSFERASE 30 U/L (12-78); ALBUMIN 3.1 g/dL (3.4-5.0); ANION GAP 4 mmol/L (5-15); CALCIUM 8.7 mg/dL (8.5-10.1); CHLORIDE 101 mmol/L (98-107)
[2021-03-11 03:55] LABS: ALKALINE PHOSPHATASE 55 U/L (45-117); BILIRUBIN,TOTAL 0.2 mg/dL (0.2-1.0)
[2021-03-11] MEDS: PIPERACILLIN/TAZO 4.5 GM in DEXTROSE 5% 100 ML IVPB SCH (04:02)
[2021-03-11] MEDS: OMEPRAZOLE 20 MG CAPSULE.DR PO SCH ×2 (06:00→14:49)
[2021-03-11] MEDS: ACETAMINOPHEN 325 MG TABLET PO PRN (06:00)
[2021-03-11] MEDS: SIMETHICONE 80 MG CHEW TAB PO SCH ×4 (06:01→20:32)
[2021-03-11] MEDS: SUCRALFATE 1 GM TABLET PO SCH ×4 (06:01→20:32)
[2021-03-11 07:56] VITALS: BP 99/64
[2021-03-11] MEDS: GABAPENTIN 100 MG CAPSULE PO SCH (10:09)
[2021-03-11] MEDS: SENNA/DOCUSATE TABLET PO SCH ×2 (10:10→20:35)
[2021-03-11] MEDS: METHYLNALTREXONE 12 MG/0.6 ML SYR SQ SCH (10:10)
[2021-03-11] MEDS: ESCITALOPRAM 10MG TABLET PO SCH (10:10)
[2021-03-11] MEDS: AMPICILLIN/SULBACTAM 3 GM in SODIUM CHLORIDE 0.9% 100 ML IV SCH ×3 (10:10→20:39)
[2021-03-11 13:51] VITALS: BP 95/60
[2021-03-11 19:15] VITALS: BP 98/63
[2021-03-11] MEDS: TAMSULOSIN 0.4 MG CAP.ER.24H PO SCH (20:32)
[2021-03-11] MEDS: MIRTAZAPINE 30 MG TAB.RAPDIS PO SCH (20:32)
[2021-03-12 00:27] VITALS: BP 100/67
[2021-03-12] MEDS: AMPICILLIN/SULBACTAM 3 GM in SODIUM CHLORIDE 0.9% 100 ML IV SCH ×4 (02:27→21:22)
[2021-03-12] MEDS: OMEPRAZOLE 20 MG CAPSULE.DR PO SCH ×2 (05:42→08:47)
[2021-03-12] MEDS: SUCRALFATE 1 GM TABLET PO SCH ×4 (05:43→21:22)
[2021-03-12] MEDS: OXYcodone IR 5MG TABLET PO PRN ×4 (05:45→21:23)
[2021-03-12 06:48] VITALS: BP 118/72
[2021-03-12] MEDS: GABAPENTIN 100 MG CAPSULE PO SCH (08:47)
[2021-03-12] MEDS: SIMETHICONE 80 MG CHEW TAB PO SCH ×4 (08:47→21:22)
[2021-03-12] MEDS: SENNA/DOCUSATE TABLET PO SCH ×2 (08:47→21:00)
[2021-03-12] MEDS: ESCITALOPRAM 10MG TABLET PO SCH (08:47)
[2021-03-12] MEDS: ONDANSETRON 2MG/ML, 2ML IVPush PRN ×2 (08:47→15:48)
[2021-03-12 14:05] VITALS: BP 100/63
[2021-03-12 19:48] VITALS: BP 101/61
[2021-03-12] MEDS: TAMSULOSIN 0.4 MG CAP.ER.24H PO SCH (21:22)
[2021-03-12] MEDS: MIRTAZAPINE 30 MG TAB.RAPDIS PO SCH (21:22)
[2021-03-13 01:37] VITALS: BP 107/71
[2021-03-13] MEDS: AMPICILLIN/SULBACTAM 3 GM in SODIUM CHLORIDE 0.9% 100 ML IV SCH ×2 (02:56→10:11)
[2021-03-13] MEDS: SUCRALFATE 1 GM TABLET PO SCH ×2 (06:32→11:36)
[2021-03-13] MEDS: SIMETHICONE 80 MG CHEW TAB PO SCH ×2 (06:32→11:36)
[2021-03-13] MEDS: OMEPRAZOLE 20 MG CAPSULE.DR PO SCH (06:32)
[2021-03-13] MEDS: OXYcodone IR 5MG TABLET PO PRN ×2 (06:33→11:37)
[2021-03-13 07:33] VITALS: BP 115/78
[2021-03-13] MEDS: ONDANSETRON 2MG/ML, 2ML IVPush PRN (08:45)
[2021-03-13] MEDS: METHYLNALTREXONE 12 MG/0.6 ML SYR SQ SCH (08:47)
[2021-03-13 09:27] LABS: BASOPHILS % (AUTO) 1 % (0-1); EOSINOPHILS % (AUTO) 1 % (1-7); LYMPHOCYTES % (AUTO) 20 % (22-44); MEAN CORPUSCULAR HEMOGLOBIN 27.8 pg (27.5-34.5); MEAN CORPUSCULAR HGB CONC 32.9 g/dL (33.2-36.2); MEAN PLATELET VOLUME 6.8 fL (7.4-10.4); MONOCYTES % (AUTO) 13 % (2-9); NEUTROPHILS % (AUTO) 65 % (42-75); PLATELET COUNT 810 x10^3/uL (130-400); RED BLOOD COUNT 2.92 x10^6/uL (4.38-5.82); RED CELL DISTRIBUTION WIDTH 18.6 % (9.4-14.8)
[2021-03-13 10:01] LABS: ALBUMIN 2.9 g/dL (3.4-5.0); CALCIUM 8.8 mg/dL (8.5-10.1)
[2021-03-13 10:07] LABS: ALANINE AMINOTRANSFERASE 29 U/L (12-78); ALKALINE PHOSPHATASE 53 U/L (45-117); BILIRUBIN,TOTAL 0.2 mg/dL (0.2-1.0); CREATININE 0.53 mg/dL (0.7-1.3); TOTAL PROTEIN 6.7 g/dL (6.4-8.2)
[2021-03-13] MEDS: GABAPENTIN 100 MG CAPSULE PO SCH (10:11)
[2021-03-13] MEDS: ESCITALOPRAM 10MG TABLET PO SCH (10:11)
[2021-03-13] MEDS: SENNA/DOCUSATE TABLET PO SCH (10:12)
[2021-03-13 10:16] LABS: CHLORIDE 101 mmol/L (98-107)
[2021-03-13 10:17] LABS: ANION GAP 3 mmol/L (5-15)
[2021-03-13] MEDS ORDERED: OXYC5TAB98 PO (11:03)
[2021-03-13] MEDS ORDERED: Unasyn IV (11:03)
[2021-03-13] MEDS: METOCLOPRAMIDE 5 MG/ML, 2ML IVPush PRN (11:37)
[2021-03-13 12:36] VITALS: BP 108/72
== END 2021-03-13 13:24 | DRG 252 ==
LOC: ED 16:41 → EDIP 20:13 → 4EST 21:28 → 4WST 03-08 08:26
PROVIDERS: ADMIT Family Medicine; ATTEND Family Medicine
PROC: 30233N1 Transfusion of Nonautologous Red Blood Cells into Peripheral Vein, Percutaneous Approach (ICD-10-PCS; principal; 2021-02-26)
PROC: 04FY3Z0 Fragmentation of Lower Artery, Percutaneous Approach, Ultrasonic (ICD-10-PCS; 2021-02-27)
PROC: 0W9H3ZZ Drainage of Retroperitoneum, Percutaneous Approach (ICD-10-PCS; 2021-02-27)
PROC: 02HV33Z Insertion of Infusion Device into Superior Vena Cava, Percutaneous Approach (ICD-10-PCS; 2021-03-01)
PROC: B548ZZA Ultrasonography of Superior Vena Cava, Guidance (ICD-10-PCS; 2021-03-01)
PROC: B5181ZA Fluoroscopy of Superior Vena Cava using Low Osmolar Contrast, Guidance (ICD-10-PCS; 2021-03-01)
PROC: 0DP6XUZ Removal of Feeding Device from Stomach, External Approach (ICD-10-PCS; 2021-03-01)
PROC: 0DH63UZ Insertion of Feeding Device into Stomach, Percutaneous Approach (ICD-10-PCS; 2021-03-01)
DX: I72.4 Aneurysm of artery of lower extremity (principal); K65.1 Peritoneal abscess; E43 Unspecified severe protein-calorie malnutrition; Z68.1 Body mass index [BMI] 19.9 or less, adult; E87.1 Hypo-osmolality and hyponatremia; N13.8 Other obstructive and reflux uropathy; K56.7 Ileus, unspecified; C15.9 Malignant neoplasm of esophagus, unspecified; R18.8 Other ascites; K94.23 Gastrostomy malfunction; D64.9 Anemia, unspecified; E83.42 Hypomagnesemia; E87.6 Hypokalemia; F12.90 Cannabis use, unspecified, uncomplicated; F17.210 Nicotine dependence, cigarettes, uncomplicated; F32.9 Major depressive disorder, single episode, unspecified; G62.9 Polyneuropathy, unspecified; G89.29 Other chronic pain; I10 Essential (primary) hypertension; K21.00 Gastro-esophageal reflux disease with esophagitis, without bleeding; N40.1 Benign prostatic hyperplasia with lower urinary tract symptoms; Z85.01 Personal history of malignant neoplasm of esophagus; Z79.2 Long term (current) use of antibiotics; S30.1XXA Contusion of abdominal wall, initial encounter; Y83.8 Other surgical procedures as the cause of abnormal reaction of the patient, or of later complication, without mention of misadventure at the time of the procedure
CPT/HCPCS: 36415; 75984; 96374; 96375; 99291; 99292; J3490; 36002; 36430; 36573; 49405; 49406; 49450; 71045; 74176; 74177; 76705; 76942; 80048; 80053; 80202; 81001; 82533; 82607; 82728; 83540; 83550; 83605; 83690; 83735; 84100; 85014; 85018; 85025; 85610; 85651; 85730; 86140; 86850; 86900; 86923; 87040; 87070; 87075; 87077; 87086; 87186; 87205; 93306; 99156; 99157; G0378; J0295; J1750; J2250; J2405; J2543; J3010; J3370; J3475; J3480; P9047; Q9967; C1729; C1751; C1769; J2270; J2310; J2765; J7030; J7040; J7050; P9016